=== PATIENT | male | born 1945 | race Caucasian/White ===

== ENCOUNTER 2018-05-12 08:03 | Outpatient (REF) | payer MEDICARE, SELFPAY ==
[2018-05-12 21:01] LABS: Anion Gap 5.8 mmol/L (3-11); BUN 21 mg/dL (7-18); CO2 31.2 mmol/L (21.0-32.0); CREATININE 1.11 mg/dL (0.70-1.30); Chloride 105 mmol/L (98-107); Cholesterol 135 mg/dL (50-200); Glucose 120 mg/dL (70-100); HDL Cholesterol 40 mg/dL (40-60); LDL CHOLESTEROL 70 mg/dL (<100); Potassium 4.4 mmol/L (3.5-5.1); Sodium 142 mmol/L (136-145); Triglyceride 145 mg/dL (30-150)
== END 2018-05-12 08:23 ==
LOC: NCHCN 08:03
PROVIDERS: Visit Provider Physician Assistant Medical
DX: E78.5 Hyperlipidemia, unspecified (principal); I10 Essential (primary) hypertension
CPT/HCPCS: 80048; 80061; 83721

== ENCOUNTER 2019-12-29 08:55 | Outpatient (REF) | payer OTHER, SELFPAY ==
[2019-12-29 19:45] LABS: Abs Immature Grans 0.01 k/cumm (0.0-0.09); Absolute Basophil Count 0.02 k/cumm (0.0-0.2); Absolute Eosinophil Count 0.17 k/cumm (0.0-0.7); Absolute Lymphocyte Count 1.42 k/cumm (1.2-3.4); Absolute Monocyte Count 0.41 k/cumm (0.11-0.7); Absolute Neutrophil Count 2.61 k/cumm (1.2-6.7); Basophils % 0.4; Eosinophils % 3.7; HCT 42.3 % (40.0-50.0); HGB 14.2 g/dL (13.5-17.5); Immature Grans % 0.2 %; Lymphocytes % 30.6; Mean Corp. HGB Concentration 33.6 g/dL (32.0-36.0); Mean Corpuscular Hemoglobin 30.9 pg (27.0-33.0); Mean Corpuscular Volume 92.2 fL (80-95); Mean Platelet Volume 11.1 fL (8.0-11.0); Monocytes % 8.8; Neutrophils % 56.3; Platelet Count 172 x1000/uL (130-400); RBC 4.59 m/cumm (4.50-6.00); RBC Distribution Width 12.5 % (11.8-14.1); White Blood Cell Count 4.64 k/cumm (4.4-10.8)
[2019-12-29 19:57] LABS: Bilirubin Negative (Negative); Blood Negative (Negative); Clarity Clear (Clear); Glucose Negative (Negative); Ketones Negative (Negative); Leukocyte Esterase Negative (Negative); Nitrite Negative (Negative); Specific Gravity >= 1.030 (1.005-1.025); Urobilinogen 0.2 EU/dL (Up TO 0.2)
[2019-12-29 20:24] LABS: ALT 19 U/L (16-63); AST 15 U/L (15-37); Albumin 3.8 g/dL (3.4-5.0); Alkaline Phosphatase 49 U/L (46-116); Anion Gap 6.6 mmol/L (3-11); BUN 14 mg/dL (7-18); Bilirubin, Total 0.6 mg/dL (0.2-1.0); CO2 31.4 mmol/L (21.0-32.0); CREATININE 0.99 mg/dL (0.70-1.30); Calcium 8.6 mg/dL (8.5-10.1); Calculated LDL 70 mg/dL (<100); Chloride 106 mmol/L (98-107); Cholesterol 123 mg/dL (<200); Glucose 107 mg/dL (74-106); HDL Cholesterol 42 mg/dL (40-60); Potassium 3.7 mmol/L (3.5-5.1); Sodium 144 mmol/L (136-145); TSH (W/Ref FT4) 1.15 uIU/mL (0.36-3.74); Total Protein 6.4 g/dL (6.4-8.2); Triglyceride 57 mg/dL (<150)
== END 2019-12-29 09:15 ==
LOC: NCHCN 08:55
PROVIDERS: Visit Provider Physician Assistant
DX: E78.5 Hyperlipidemia, unspecified (principal); I10 Essential (primary) hypertension
CPT/HCPCS: 80053; 80061; 81003; 84443; 85025

== ENCOUNTER 2020-01-10 17:19 | Outpatient (REF) | payer OTHER, SELFPAY ==
[2020-01-10 19:28] LABS: Uric Acid 4.5 mg/dL (3.5-7.2)
== END 2020-01-10 17:39 ==
LOC: NCHCN 17:19
PROVIDERS: Visit Provider Physician Assistant
DX: M79.672 Pain in left foot (principal)
CPT/HCPCS: 84550

== ENCOUNTER 2020-06-28 14:10 | Outpatient (REF) | payer OTHER, SELFPAY ==
[2020-06-28 15:08] LABS: Abs Immature Grans 0.02 10^3/uL (0.0-0.06); Absolute Basophil Count 0.04 10^3/uL (0.0-0.2); Absolute Eosinophil Count 0.15 10^3/uL (0.0-0.7); Absolute Lymphocyte Count 1.64 10^3/uL (1.2-3.4); Basophils % 0.7; Eosinophils % 2.8; HCT 41.4 % (40.0-50.0); Immature Grans % 0.4; Lymphocytes % 30.1; MCH 30.9 pg (27.0-33.0); MCHC 33.8 % (32.0-36.0); MCV 91.4 fL (80-95); Monocytes % 7.3; Neutrophils % 58.7; Nucleated RBC 0 %; Platelet Count 155 10^3/uL (130-400); RBC 4.53 10^6/uL (4.36-5.78); RDW 12.3 % (11.8-14.1); RDW-SD 40.9 fL; WBC 5.45 10^3/uL (4.4-10.8)
[2020-06-28 15:25] LABS: Iron 82 ug/dL (65-175); Total Iron Binding Capacity 251 ug/dL (250-450); Transferrin Sat 33 % (20-55)
[2020-06-28 15:53] LABS: ALT 35 U/L (16-63); AST 18 U/L (15-37); Albumin 3.8 g/dL (3.4-5.0); Alkaline Phosphatase 49 U/L (46-116); BUN 14 mg/dL (7-18); Bilirubin, Total 0.7 mg/dL (0.2-1.0); CREATININE 0.99 mg/dL (0.70-1.30); Calcium 8.7 mg/dL (8.5-10.1); Calculated LDL 71 mg/dL (<100); Chloride 105 mmol/L (98-107); Cholesterol 131 mg/dL (<200); Ferritin 227 ng/mL (26-388); Glucose 136 mg/dL (74-106); HDL Cholesterol 50 mg/dL (40-60); Potassium 3.8 mmol/L (3.5-5.1); Sodium 143 mmol/L (136-145); TSH (W/Ref FT4) 1.12 uIU/mL (0.36-3.74); Total Protein 6.6 g/dL (6.4-8.2); Triglyceride 51 mg/dL (<150); Vitamin B12 826 pg/mL (193-986)
[2020-06-28 17:05] LABS: Hemoglobin A1C 5.8 % (<5.7)
== END 2020-06-28 14:30 ==
LOC: NCHCN 14:10
PROVIDERS: Visit Provider Physician Assistant
DX: I10 Essential (primary) hypertension (principal); E78.5 Hyperlipidemia, unspecified; E63.9 Nutritional deficiency, unspecified; R73.9 Hyperglycemia, unspecified; E53.8 Deficiency of other specified B group vitamins; R79.89 Other specified abnormal findings of blood chemistry
CPT/HCPCS: 80053; 80061; 82607; 82728; 83036; 83540; 83550; 84443; 85025

== ENCOUNTER 2021-01-10 19:03 | Outpatient (REF) | payer OTHER, SELFPAY ==
[2021-01-10 19:26] LABS: Abs Immature Grans 0.01 10^3/uL (0.0-0.06); Absolute Basophil Count 0.03 10^3/uL (0.0-0.2); Absolute Eosinophil Count 0.14 10^3/uL (0.0-0.7); Absolute Lymphocyte Count 1.54 10^3/uL (1.2-3.4); Absolute Monocyte Count 0.39 10^3/uL (0.1-0.8); Absolute Neutrophil Count 2.82 10^3/uL (1.2-6.7); Basophils % 0.6; Eosinophils % 2.8; HGB 14.1 g/dL (13.5-17.5); Immature Grans % 0.2; Lymphocytes % 31.2; MCH 30.5 pg (27.0-33.0); MCHC 32.8 % (32.0-36.0); MCV 93.1 fL (80-95); MPV 10.9 fL (8.0-11.0); Monocytes % 7.9; Neutrophils % 57.3; Nucleated RBC 0 %; Platelet Count 162 10^3/uL (130-400); RBC 4.62 10^6/uL (4.36-5.78); RDW 12.3 % (11.8-14.1); RDW-SD 42.2 fL; WBC 4.93 10^3/uL (4.4-10.8)
[2021-01-10 20:09] LABS: ALT 29 U/L (16-63); AST 24 U/L (15-37); Alkaline Phosphatase 53 U/L (46-116); Anion Gap 6.7 mmol/L (3-11); BUN 12 mg/dL (7-18); CO2 32.3 mmol/L (21.0-32.0); Calcium 9.1 mg/dL (8.5-10.1); Calculated LDL 70 mg/dL (<100); Chloride 106 mmol/L (98-107); Cholesterol 124 mg/dL (<200); Glucose 104 mg/dL (74-106); HDL Cholesterol 48 mg/dL (40-60); Potassium 4.2 mmol/L (3.5-5.1); Sodium 145 mmol/L (136-145); Total Protein 6.7 g/dL (6.4-8.2); Triglyceride 34 mg/dL (<150); Vitamin B12 576 pg/mL (193-986)
[2021-01-10 20:15] LABS: Hemoglobin A1C 5.9 % (<5.7)
== END 2021-01-10 19:04 | disposition home or self-care (01) ==
LOC: NCHCN 19:03
PROVIDERS: Visit Provider Physician Assistant
DX: E78.5 Hyperlipidemia, unspecified (principal); R73.9 Hyperglycemia, unspecified; I10 Essential (primary) hypertension; E53.8 Deficiency of other specified B group vitamins
CPT/HCPCS: 80053; 80061; 82607; 83036; 85025

== ENCOUNTER 2021-04-25 12:40 | Outpatient (CLI) | payer MEDICARE, SELFPAY ==
--- NOTE | 2021-04-25 09:45 | DI.RAD_ITS ---
Exam(s) XR KNEE LT 3V AP,LAT,CLARI EXAM: XR KNEE LT 3V AP,LAT,CLARI CLINICAL HISTORY: left knee pain. TECHNIQUE: 2D digital imaging was performed. COMPARISON: No exams were available for comparison FINDINGS: BONES: No acute fracture is present. No bony destructive lesion is seen. JOINTS: The knee is normally aligned. No joint effusion is seen. The joint spaces are well maintaine d. There is mild periarticular spurring. SOFT TISSUE: Normal. IMPRESSION: Mild degenerative changes. DATA REPOSITORY: RADIATION DOSE DELIVERED:
== END 2021-04-25 12:41 | disposition home or self-care (01) ==
LOC: DIORS 12:40
PROVIDERS: Visit Provider Physician Assistant
DX: M25.562 Pain in left knee (principal); M23.92 Unspecified internal derangement of left knee
CPT/HCPCS: 20610; 73562; 99203; J1040

== ENCOUNTER 2021-07-10 15:15 | Outpatient (REF) | payer MEDICARE, SELFPAY ==
[2021-07-10 20:50] LABS: Hemoglobin A1C 5.8 % (<5.7)
== END 2021-07-10 15:16 | disposition home or self-care (01) ==
LOC: NCHCN 15:15
PROVIDERS: Visit Provider Physician Assistant
DX: R73.03 Prediabetes (principal)
CPT/HCPCS: 83036

== ENCOUNTER 2022-01-23 00:54 | Outpatient (CLI) | payer MEDICARE, SELFPAY ==
--- NOTE | 2022-01-23 | DI.RAD_ITS ---
Exam(s) XR KNEE RT 3V AP,LAT,CLARI EXAM: XR KNEE RT 3V AP,LAT,CLARI CLINICAL HISTORY: RT KNEE MAIN, M25.561. TECHNIQUE: 2D digital imaging was performed. COMPARISON: None. FINDINGS: Three views There is a right knee prosthesis. Components exhibit longer than typical stems. No fracture. No lo osening. No radiographic evidence of osteomyelitis. IMPRESSION: DATA REPOSITORY: RADIATION DOSE DELIVERED:
--- NOTE | 2022-01-23 | DI.RAD_ITS ---
Exam(s) XR KNEE LT 3V AP,LAT,CLARI EXAM: XR KNEE LT 3V AP,LAT,CLARI CLINICAL HISTORY: LT KNEE PAIN, M25.562. TECHNIQUE: 2D digital imaging was performed. COMPARISON: CR XR KNEE LT 3V AP,LAT,CLRAI from 04/25/2021 CR XR KNEE RT 3V AP,LAT,CLARI from 01/23/2022 FINDINGS: 3 views No evidence of fracture nor joint effusion. No joint space narrowing on the weight-bearing view. No osteophytes evident although there is mild degenerative pointing of the medial tibial spine. Bone d ensity normal. No osseous lesions. IMPRESSION: No significant radiographic findings. DATA REPOSITORY: RADIATION DOSE DELIVERED:
== END 2022-01-23 01:14 ==
LOC: DI 00:54
PROVIDERS: Visit Provider Physician Assistant
DX: M25.561 Pain in right knee (principal); Z96.651 Presence of right artificial knee joint
CPT/HCPCS: 73562

== ENCOUNTER 2022-01-29 15:08 | Outpatient (REF) | payer MEDICARE, SELFPAY ==
[2022-01-29 21:20] LABS: ALT 24 U/L (16-63); AST 22 U/L (15-37); Albumin 3.9 g/dL (3.4-5.0); Alkaline Phosphatase 43 U/L (46-116); Anion Gap 7.5 mmol/L (3-11); BUN 21 mg/dL (7-18); Bilirubin, Total 0.5 mg/dL (0.2-1.0); CO2 29.5 mmol/L (21.0-32.0); Calcium 8.9 mg/dL (8.5-10.1); Calculated LDL 91 mg/dL (<100); Chloride 105 mmol/L (98-107); Cholesterol 152 mg/dL (<200); Glucose 121 mg/dL (74-106); HDL Cholesterol 46 mg/dL (40-60); Potassium 4.2 mmol/L (3.5-5.1); Sodium 142 mmol/L (136-145); Total Protein 7.2 g/dL (6.4-8.2); Triglyceride 78 mg/dL (<150)
== END 2022-01-29 15:09 | disposition home or self-care (01) ==
LOC: NCHCN 15:08
PROVIDERS: PCP Physician Assistant; Visit Provider Physician Assistant
DX: E78.5 Hyperlipidemia, unspecified (principal); I10 Essential (primary) hypertension
CPT/HCPCS: 80053; 80061

== ENCOUNTER 2022-04-03 09:20 | Outpatient (CLI) | payer MEDICARE, SELFPAY ==
--- NOTE | 2022-04-03 09:15 | DI.RAD_ITS ---
Exam(s) XR HIP PELVIS ADULT BL EXAM: XR HIP PELVIS ADULT BL CLINICAL HISTORY: bilateral hip discomfort TECHNIQUE: COMPARISON: No exams were available for comparison FINDINGS: Three views were obtained. The cartilaginous joint spaces of the hips may be minimally narrowed supe riorly. There is slight subchondral sclerosis of the acetabulum bilaterally and there is minimal mar ginal osteophyte formation of both femoral heads and acetabulum. No other bony abnormality seen. IMPRESSION: Mild DJD both hips. RADIATION DOSE DELIVERED: Total DLP
== END 2022-04-03 09:21 | disposition home or self-care (01) ==
LOC: DIORS 09:20
PROVIDERS: PCP Physician Assistant; Referring Provider Physician Assistant; Visit Provider Physician Assistant
DX: M17.12 Unilateral primary osteoarthritis, left knee (principal); M16.11 Unilateral primary osteoarthritis, right hip; M16.12 Unilateral primary osteoarthritis, left hip; Z96.651 Presence of right artificial knee joint
CPT/HCPCS: 20610; 73521; J1040

== ENCOUNTER 2022-09-10 01:29 | Outpatient (CLI) | payer MEDICARE, SELFPAY ==
--- NOTE | 2022-09-10 | DI.RAD_ITS ---
Exam(s) XR HIP LT COMPLETE AP PELVIS EXAM: XR HIP LT COMPLETE AP PELVIS CLINICAL HISTORY: LT HIP PAIN, M25.552. TECHNIQUE: 2D digital imaging was performed of the left hip. Two views were obtained. AP pelvis an d lateral left hip views were obtained. COMPARISON: CR XR HIP PELVIS ADULT BL from 04/03/2022 FINDINGS: BONES: No acute fracture is present. No bony destructive lesion is seen. JOINTS: No dislocation present. There is appear to be mild narrowing of the joint spaces bilaterally and mild acetabular spurring. Degenerative changes are seen in the lower lumbar spine. SOFT TISSUE: Normal. IMPRESSION: Mild degenerative changes of the left hip. DATA REPOSITORY: RADIATION DOSE DELIVERED:
--- NOTE | 2022-09-10 | DI.RAD_ITS ---
Exam(s) XR SHOULDER RT COMPLETE 2+V EXAM: XR SHOULDER RT COMPLETE 2+V CLINICAL HISTORY: RT SHOULDER PAIN, M25.511. TECHNIQUE: 2D digital imaging was performed of the right shoulder. Four images were obtained. AP, axillary and Y views were obtained. COMPARISON: No exams were available for comparison FINDINGS: BONES: No acute fracture is present. No bony destructive lesion is seen. JOINTS: No dislocation present. There are degenerative changes seen at the acromioclavicular joint ch aracterized by bony hypertrophy. The glenohumeral joint is well maintained. SOFT TISSUE: There is a soft tissue calcification adjacent to the greater tuberosity suggesting calci fic tendinitis. IMPRESSION: Degenerative changes of the shoulder as described. DATA REPOSITORY: RADIATION DOSE DELIVERED:
== END 2022-09-10 01:49 ==
LOC: DI 01:30
PROVIDERS: PCP Physician Assistant; Visit Provider Physician Assistant
DX: M25.511 Pain in right shoulder (principal); M25.552 Pain in left hip; M75.31 Calcific tendinitis of right shoulder; M25.811 Other specified joint disorders, right shoulder; M16.12 Unilateral primary osteoarthritis, left hip
CPT/HCPCS: 73030; 73502

== ENCOUNTER → 2022-12-04 14:20 | Outpatient (BNVA) | payer MEDICARE, SELFPAY | PROVIDERS: PCP Physician Assistant; Referring Provider Physician Assistant | DX: M17.12 Unilateral primary osteoarthritis, left knee (principal) | CPT/HCPCS: 99213 ==

== ENCOUNTER 2023-01-14 09:23 | Outpatient (REF) | payer MEDICARE, SELFPAY ==
[2023-01-14 20:28] LABS: HCT 44.2 % (40.0-50.0); MCH 30.9 pg (27.0-33.0); MCHC 33.9 % (32.0-36.0); MCV 91 fL (80-95); MPV 10.3 fL (8.0-11.0); Platelet Count 179 10^3/uL (130-400); RBC 4.85 10^6/uL (4.36-5.78); RDW-SD 40.3 fL; WBC 5.91 10^3/uL (4.4-10.8)
[2023-01-14 20:59] LABS: ALT 28 U/L (16-63); AST 19 U/L (15-37); Alkaline Phosphatase 45 U/L (46-116); BUN 13 mg/dL (7-18); Bilirubin, Total 0.5 mg/dL (0.2-1.0); Calculated LDL 104 mg/dL (<100); Chloride 106 mmol/L (98-107); Cholesterol 164 mg/dL (<200); Estimated GFR 78.49 (mL/min/1.73m2); Glucose 100 mg/dL (74-106); HDL Cholesterol 44 mg/dL (40-60); Potassium 3.8 mmol/L (3.5-5.1); Sodium 144 mmol/L (136-145); Total Protein 7.2 g/dL (6.4-8.2); Triglyceride 80 mg/dL (<150)
== END 2023-01-14 09:24 | disposition home or self-care (01) ==
LOC: NCHCN 09:23
PROVIDERS: PCP Physician Assistant; Visit Provider Physician Assistant
DX: I10 Essential (primary) hypertension (principal)
CPT/HCPCS: 80053; 80061; 85027

== ENCOUNTER 2023-01-14 13:15 | Outpatient (CLI) | payer MEDICARE, SELFPAY ==
--- NOTE | 2023-01-14 13:00 | DI.RAD_ITS ---
Exam(s) XR SHOULDER LT COMPLETE 2+V EXAM: XR SHOULDER LT COMPLETE 2+V CLINICAL HISTORY: left shoulder pain. TECHNIQUE: 2D digital imaging was performed. Three views. COMPARISON: None FINDINGS: BONES: No acute fracture is present. No bony destructive lesion is seen. JOINTS: No dislocation present. Mild narrowing of the glenohumeral joint. Mild periarticular spurri ng. Mild spurring at the AC joint. SOFT TISSUE: Linear calcification adjacent to greater tuberosity, consistent with calcific tendinosis . IMPRESSION: Mild degenerative changes and calcific tendinosis. DATA REPOSITORY: RADIATION DOSE DELIVERED:
== END 2023-01-14 13:16 | disposition home or self-care (01) ==
LOC: DIORS 13:15
PROVIDERS: PCP Physician Assistant; Referring Provider Physician Assistant; Visit Provider Student in an Organized Health Care Education/Training Program
DX: S46.012A Strain of muscle(s) and tendon(s) of the rotator cuff of left shoulder, initial encounter; X58.XXXA Exposure to other specified factors, initial encounter
CPT/HCPCS: 99214; 73030

== ENCOUNTER → 2023-03-05 08:11 | Outpatient (BNVA) | payer MEDICARE, SELFPAY | PROVIDERS: PCP Physician Assistant; Referring Provider Physician Assistant; Visit Provider Physical Therapy Assistant | DX: Z12.11 Encounter for screening for malignant neoplasm of colon (principal); Z86.010 Personal history of colon polyps ==

== ENCOUNTER → 2023-03-18 13:15 | Outpatient (BNVA) | payer MEDICARE, SELFPAY | PROVIDERS: PCP Physician Assistant; Referring Provider Physician Assistant; Visit Provider Student in an Organized Health Care Education/Training Program ==

== ENCOUNTER 2023-03-19 06:42 | Day surgery (SDC) | payer MEDICARE, SELFPAY ==
--- NOTE | 2023-03-18 13:20 | W.PM.DSUDISC ---
Date of service: 03/19/23 Time of Service: 08:32 Discharge Plan Disposition Patient Disposition: Home Condition: Good Discharge Details Reason For Visit: Screening colonoscopy Attending Provider: Farooq Hair Primary Care Provider: Hazel Grajeda Home Meds and New Rx's Prescriptions: Continued omega-3 fatty acids-fish oil 1 EACH capsule 2 ea PO DAILY cholecalciferol (vitamin D3) [Vitamin D3] 2,000 UNIT tablet 2,000 unit PO DAILY cyanocobalamin (vitamin B-12) 2,500 MCG tablet 2,500 mcg PO DAILY amlodipine 10 mg tablet 10 mg PO DAILY aspirin [Adult Aspirin Regimen] 81 mg tablet,delayed release (DR/EC) 81 mg PO DAILY red yeast rice 600 mg capsule 1,200 mg PO DAILY Rx Instructions: give with meal/snack esomeprazole magnesium 20 mg capsule,delayed release(DR/EC) 20 mg PO DAILY ascorbic acid (vitamin C) 500 mg capsule 500 mg PO DAILY Discontinued bisacodyl [Dulcolax (bisacodyl)] 5 mg tablet,delayed release (DR/EC) 5 mg PO ONCE Qty: 4 0RF Rx Instructions: Take per colonoscopy instructions provided by ordering providers office polyethylene glycol 3350 17 gram/dose powder 17 g PO ONCE Qty: 238 0RF Rx Instructions: Take per colonoscopy instructions provided by ordering providers office Discharge Instructions Instructions: Diverticulosis (GEN), Diverticulosis Diet (GEN) Additional Instructions: Ricardo, we were able to complete your colonoscopy today without any difficulty. You do have some diverticulosis. These are weak spots in the colon wall that typically accumulate with age. Sometimes they can get infected, and when that happens, patients usually have bad left-sided or lower abdominal pain with fevers and a general sense of feeling crummy. If you find that happening, I would recommend touching base with your primary care doctor, or perhaps stopping in the emergency department. In severe cases, patients should be treated with antibiotics. Otherwise, your colonoscopy was totally normal. I did not see any signs of polyps or tumors. Like we talked about beforehand, if you want to come back for a future colonoscopy, would be more than happy to have you. If you have decided that this is your last one, then I certainly understand that as well. 1. If tolerated, consume a soft, low fiber diet for 1-2 days. 2[address] Do not drive, drink alcohol, operate machinery, make critical decisions, or do activities that require coordination or balance for 24 hours. 3. Because air was put into your colon during the procedure, expelling air from your rectum (passing gas or farting) is normal. 4. You may not have a bowel movement for 1-3 days because of the colonoscopy prep. This is normal. 5. Go directly to the emergency room if you notice any of the following: Develop chills (warm to touch), or if you have a thermometer and your temperature is above 101 Difficulty breathing or difficultly swallowing Persistent vomiting Severe abdominal pain, other than gas cramps Severe chest pain Black, tarry stools Any bleeding ? exceeding one tablespoon 6. Call your physician if the site where your intravenous was started becomes red, swollen, painful, and warm to touch. 7. Your physician has reviewed your pre-procedure medications. Please continue to take those medications as previously ordered. You will be given specific information/education regarding any changes to your medications before leaving. Activity:: Activity as Tolerated Diet:: As Tolerated Discharge Orders Discharge Orders: Discharge Order (Routine); Ordered 03/18/23 Ordered By: Farooq Hair DS: Diagnosis Discharge Diagnosis (1) Screen for colon cancer: Status: Acute Asessment and Plan: Diverticulosis, otherwise negative screening colonoscopy
--- NOTE | 2023-03-18 13:21 | COLE_ITS ---
Date of service: 03/19/23 Time of Service: 08:34 Colonoscopy Report Date of procedure: 03/19/23 Pre-op diagnosis general: Screening colonoscopy Post-op diagnosis procedure note: other (Diverticulosis) Procedure: Colonoscopy Surgeon: Farooq Hair Anesthesia Type: General:No Airway Estimated blood loss (mL): 0 Pathology: none sent Complications: None Disposition: same day Indications: Ricardo is a 78-year-old male who has a previous tubular adenoma on colonoscopy. He is here for his next screen. Prep: Miralax/Dulcolax Procedure Start Time: 08:11 Procedure End Time: 08:22 Retraction Time: 8 Findings: Sigmoid diverticulosis extending from about 20 cm to about 35 cm Procedure Description: After the induction of monitored anesthetic care, and with the patient in left lateral decubitus position, I began by performing an external anorectal exam.? Perineum and skin were normal, as was the anal verge.? There are some mild external hemorrhoids.? Next, I performed a digital rectal exam.? I did not appreciate any abnormal findings.? Next, I advanced a colonoscope into the rectal vault.? I performed retroflexion.? This appeared normal.? Using insufflation, I then advanced the colonoscope beyond the rectal folds and into t he sigmoid colon before advancing towards the cecum. There was sigmoid diverticulosis the quality of the prep was excellent.? The scope was noted to be in the cecum by identification of the ileocecal valve and appendiceal orifice.? I then began withdrawing the colonoscope using repeated irrigation as necessary for full evaluation of the colonic mucosa. The diverticulosis extended from about 35 cm to about 20 cm from the anal verge. ?Once the scope was withdrawn to the level of the rectum, great care was taken to examine portions of the rectal folds.? Finally, the scope was withdrawn and the patient was brought to the same-day surgery recovery unit as the anesthetic wore off. ?The findings and instructions were shared with the patient prior to discharge.
[2023-03-19 06:55] VITALS: BP 134/65; PULSE 52; RESP 16; TEMP 36.3; O2SAT 97
[2023-03-19] MEDS: Lactated Ringers 1,000 ML 80 ML IV (07:16)
--- NOTE | 2023-03-19 07:35 | W.ANESPRE ---
General Info Date of Service Date Performed: 03/19/23 Height: 5 ft 8 in Weight: 69.1 kg Body Mass Index (BMI): 23.1 Surgical Procedure: Operation Date: 03/19/23 08:20 Proposed Procedure Side Surgeon mike Hair MD Meds Allergies and Home Medications Allergies Allergy/AdvReac Type Severity Reaction Status Date / Time influenza virus vaccine tv Allergy Severe Verified 03/19/23 07:07 split 2012-14 (5 yr,up) [From Afluria] sildenafil citrate Allergy Unknown Verified 03/19/23 07:07 [From Viagra] donepezil [From Aricept] Allergy Verified 03/19/23 07:07 rivastigmine [From Exelon] Allergy Verified 03/19/23 07:07 rivastigmine tartrate Allergy Verified 03/19/23 07:07 [From Exelon] warfarin sodium Allergy Verified 03/19/23 07:07 [From Coumadin] 0XYCODONE Allergy Unknown Uncoded 03/19/23 07:07 FLU SHOT Allergy Unknown Uncoded 03/19/23 07:07 Home Medication Medication Instructions Recorded cholecalciferol (vitamin D3) 50 2,000 unit PO DAILY 04/15/17 mcg (2,000 unit) tablet (Vitamin D3) cyanocobalamin (vitamin B-12) 2,500 mcg PO DAILY 04/15/17 2,500 mcg tablet omega-3 fatty acids-fish oil 300 2 ea PO DAILY 04/15/17 mg-1,000 mg capsule amlodipine 10 mg tablet 10 mg PO DAILY 01/28/22 aspirin 81 mg tablet,delayed 81 mg PO DAILY 01/28/22 release (Adult Aspirin Regimen) red yeast rice 600 mg capsule 1,200 mg PO DAILY 01/28/22 ascorbic acid (vitamin C) 500 mg 500 mg PO DAILY 09/02/22 capsule esomeprazole magnesium 20 mg 20 mg PO DAILY 09/02/22 capsule,delayed release Current Visit Medications: Current Medications Generic Name Dose Route Start Last Admin Trade Name Freq PRN Reason Stop Dose Admin Hyoscyamine Sulfate 0.125 mg 03/18/23 13:22 Hyoscyamine 0.125 Mg Sl/Oral/Chew SL 04/17/23 13:21 DIRECTED PRN Ringer's Solution 1,000 mls @ 80 mls/hr 03/19/23 06:00 03/19/23 07:16 IV 04/17/23 23:59 80 mls/hr INFUSION RUY Administration IV Miscellaneous Supplies 1 each 03/19/23 06:00 Iv Access IV 04/17/23 23:59 DIRECTED RUY Ondansetron HCl 4 mg 03/18/23 13:22 Ondansetron 4 Mg/2 Ml Vial IVP 04/17/23 13:21 Q4H PRN PRN Nausea / Vomiting Sodium Chloride 0 ml 03/19/23 06:00 Normal Saline Flush 10 Ml Syr IV 04/17/23 23:59 PRN PRN Sodium Chloride 0 ml 03/19/23 06:00 Normal Saline 10 Ml Vial IJ 04/17/23 23:59 DIRECTED PRN Sterile Water 0 ml 03/19/23 06:00 Water,Injection,Sterile 10 Ml Vial IJ 04/17/23 23:59 DIRECTED PRN PFSH Active Problems Active Problems: Problem Status Onset Code Screen for colon cancer Z12.11 Traumatic tear of left rotator cuff 01/03/23 S46.012A Left shoulder pain M25.512 Nutritional deficiency, unspecified E63.9 Prediabetes R73.03 Hearing loss, bilateral H91.93 Left knee pain M25.562 Right knee pain M25.561 Pulsatile tinnitus H93.A9 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 Degenerative joint disease of right hip M16.11 Osteoarthritis of left knee M17.12 Hypertension I10 Erectile dysfunction N52.9 B12 deficiency E53.8 GERD (gastroesophageal reflux disease) K21.9 Lung nodule R91.1 Renal colic N23 Hyperlipidemia E78.5 Bladder mass N32.89 Genital warts A63.0 Mild cognitive impairment G31.84 Orthostatic hypotension I95.1 Hyperglycemia R73.9 Medical History Medical History H/O adenomatous polyp of colon History of colonic polyps Surgical History Surgical History History of total right knee replacement Tobacco Smoking/Tobacco Use Status: Former Tobacco Use Alcohol Alcohol Intake: former Substance Use Substance use: Never Substance use type: does not use Vital Signs and Lab Results Vital Signs Most Recent Vital Signs in EMR: Most Recent Vital Signs Temp Pulse Resp BP Pulse Ox 36.3 C L 52 L 16 134/65 97 03/19/23 06:55 03/19/23 06:55 03/19/23 06:55 03/19/23 06:55 03/19/23 06:55 Lab Results Blood Type / Crossmatch: No Data to Display Complete Blood Count: No Data to Display Complete Metabolic Panel: No Data to Display Liver Function Panel: No Data to Display Coagulation Panel: No Data to Display Cardiac Panel: No Data to Display Arterial Blood Gas: No Data to Display Venous Blood Gas: No Data to Display Pancreas Panel: No Data to Display Thyroid Panel: No Data to Display Infectious Disease: No Data to Display Blood Cultures: No Data to Display Toxicology Panel: No Data to Display Anesthesia Assessment and Plan Anesthesia History Personal History: No History of Anesthesia Complications Family History: No Family History of Anesthesia Complications Exercise Tolerance Exercise Tolerance: Metabolic Equivalents>4 Pertinent Negatives Pertinent Negatives: No Symptoms of GERD, No Major Cardiovascular Symptoms or Complaints and No Major Pulmonary Symptoms or Complaints Cardiac & Pulmonary Exam Cardiac Exam: Normal S1/S2 Heart Sounds Pulmonary Exam: Clear Bilateral Breath Sounds Implantable Cardiac Device Does patient have a Pacemaker or an ICD?: No Airway Exam Known Difficult Airway: No Mallampati Class: 2 Mouth Opening: Normal (> 3cm) Thyromental Distance: Greater than 3 cm Neck Range of Motion: Full ROM Neck Circumference: Normal Teeth Condition: Normal Dentition ASA Classification ASA Score: ASA 2 Emergency Case?: No NPO Status NPO Status: NPO Clears >2 hours, Solids >8 hours Anesthesia Plan Resuscitation Status: Full Code Anesthesia Technique: General Anesthesia Airway Planned: Natural Airway Monitors Used: Standard Monitors
[2023-03-19 08:04] VITALS: BMI 23.1
[2023-03-19 08:30] VITALS: BP 120/67; PULSE 56; RESP 16; TEMP 36.3; O2SAT 96
[2023-03-19 08:51] VITALS: BP 126/67; PULSE 57; RESP 16; TEMP 36.6; O2SAT 95
--- NOTE | 2023-03-19 09:16 | W.COLOREPORT ---
Date of service: 03/19/23 Time of Service: 09:17
--- NOTE | 2023-03-19 09:19 | W.ANESPOSTOP ---
Postoperative Evaluation Date, Time and Location Date Performed: 03/19/23 Time Performed: 08:40 Patient Location: Day Surgery Unit Vital Signs Most Recent Imported Vital Signs: Most Recent Vital Signs Temp Pulse Resp BP Pulse Ox 36.6 C 57 L 16 126/67 95 03/19/23 08:51 03/19/23 08:51 03/19/23 08:51 03/19/23 08:51 03/19/23 08:51 Pain Score Most Recent Pain Score: Most Recent Pain Score Pain Level 0 03/19/23 08:51 Assessment Mental Status: Awake (Alert & Oriented to Patient Baseline) Airway and Respiratory Function: Patent airway with normal (patient baseline) respiratory exam Cardiovascular Function: Hemodynamically Stable Hydration Status: Adequately Hydrated Nausea & Vomiting: No Nausea or Vomiting Pain: Pt. Denies Any Pain Peripheral Nerve Block: Patient did not receive a nerve block
== END 2023-03-19 09:10 | disposition home or self-care (01) ==
PROVIDERS: PCP Physician Assistant; Visit Provider Surgery
PROC: 0DJD8ZZ Inspection of Lower Intestinal Tract, Via Natural or Artificial Opening Endoscopic (ICD-10-PCS; CPT 45378; principal; 2023-03-19 08:15)
DX: Z12.11 Encounter for screening for malignant neoplasm of colon (principal); K57.30 Diverticulosis of large intestine without perforation or abscess without bleeding; Z86.010 Personal history of colon polyps; I10 Essential (primary) hypertension; E78.5 Hyperlipidemia, unspecified; R73.03 Prediabetes
CPT/HCPCS: G0105; J2001

== ENCOUNTER 2023-04-16 02:40 | Outpatient (CLI) | payer MEDICARE, SELFPAY ==
[2023-04-16 11:25] LABS: HCT 43.2 % (40.0-50.0); HGB 14.4 g/dL (13.5-17.5); MCH 30.6 pg (27.0-33.0); MCHC 33.3 % (32.0-36.0); MCV 92 fL (80-95); MPV 9.1 fL (8.0-11.0); Platelet Count 159 10^3/uL (130-400); RBC 4.71 10^6/uL (4.36-5.78); RDW 12.3 % (11.8-14.1); RDW-SD 41.9 fL; WBC 5.09 10^3/uL (4.4-10.8)
[2023-04-16 11:48] LABS: BUN 11 mg/dL (7-18); CREATININE 0.9 mg/dL (0.70-1.30); Calcium 9.5 mg/dL (8.5-10.1); Chloride 105 mmol/L (98-107); Estimated GFR 88.51 (mL/min/1.73m2); Glucose 91 mg/dL (74-106); Potassium 3.6 mmol/L (3.5-5.1); Sodium 142 mmol/L (136-145)
== END 2023-04-16 02:41 | disposition home or self-care (01) ==
PROVIDERS: PCP Physician Assistant; Visit Provider Student in an Organized Health Care Education/Training Program
DX: M17.12 Unilateral primary osteoarthritis, left knee (principal); Z01.818 Encounter for other preprocedural examination
CPT/HCPCS: 36415; 80048; 85027

== ENCOUNTER 2023-04-16 11:11 | Outpatient (CLI) | payer MEDICARE, SELFPAY ==
--- NOTE | 2023-04-16 09:45 | DI.RAD_ITS ---
Exam(s) XR KNEE LT 1V XR STANDING ALIGNMENT EXAM: XR STANDING ALIGNMENT CLINICAL HISTORY: PRE OP L TKA. TECHNIQUE: 2D digital imaging was performed. Five images were obtained. COMPARISON: CR XR KNEE LT 3V AP,LAT,CLARI from 01/23/2022 CR XR KNEE RT 3V AP,LAT,CLARI from 01/23/2022 CR XR HIP PELVIS ADULT BL from 04/03/2022 CR XR KNEE LT 1V from 04/16/2023 FINDINGS: BONES: The hips are well maintained. There are stable postsurgical changes of a right knee replaceme nt. The orthopedic hardware appears unchanged. No suspicious lucencies are seen in or about the ort hopedic hardware. There is mild spurring of the posterior left patella. The left knee joint spaces are otherwise well maintained. There is a tiny left knee joint effusion. Atherosclerosis is seen in the soft tissues. The ankles are well maintained.There is no significant leg length discrepancy. SOFT TISSUE: Normal. IMPRESSION: 1. Stable right knee prosthesis. 2. Mild degenerative changes in the left knee. DATA REPOSITORY: RADIATION DOSE DELIVERED:
== END 2023-04-16 11:12 | disposition home or self-care (01) ==
LOC: DIORS 11:12
PROVIDERS: PCP Physician Assistant; Visit Provider Physician Assistant
DX: M17.12 Unilateral primary osteoarthritis, left knee (principal); Z01.818 Encounter for other preprocedural examination
CPT/HCPCS: 73560; 77073

== ENCOUNTER 2023-04-22 05:32 | Day surgery (SDC) | payer MEDICARE, SELFPAY ==
--- NOTE | 2023-04-21 14:03 | W.ANESPRE ---
General Info Date of Service Date Performed: 04/22/23 Height: 5 ft 8 in Weight: 70.76 kg Body Mass Index (BMI): 23.7 Surgical Procedure: Operation Date: 04/22/23 07:40 Proposed Procedure Side Surgeon p Knee Total Arthroplasty w/OrthAlign, Cementless CR Left Wellington Bhatt MD Meds Allergies and Home Medications Allergies Allergy/AdvReac Type Severity Reaction Status Date / Time influenza virus vaccine tv Allergy Severe Verified 04/16/23 10:19 split 2012-14 (5 yr,up) [From Afluria] oxycodone Allergy Intermediate Other (See Unverified 04/21/23 12:41 Comment) sildenafil citrate Allergy Unknown Verified 04/21/23 12:41 [From Viagra] donepezil [From Aricept] Allergy Verified 04/21/23 12:41 rivastigmine [From Exelon] Allergy Verified 04/21/23 12:41 rivastigmine tartrate Allergy Verified 04/21/23 12:41 [From Exelon] warfarin sodium Allergy Verified 04/21/23 12:41 [From Coumadin] FLU SHOT Allergy Unknown Uncoded 04/21/23 12:41 Home Medication Medication Instructions Recorded cholecalciferol (vitamin D3) 50 2,000 unit PO DAILY 04/15/17 mcg (2,000 unit) tablet (Vitamin D3) cyanocobalamin (vitamin B-12) 2,500 mcg PO DAILY 04/15/17 2,500 mcg tablet omega-3 fatty acids-fish oil 300 2 ea PO DAILY 04/15/17 mg-1,000 mg capsule amlodipine 10 mg tablet 10 mg PO DAILY 01/28/22 aspirin 81 mg tablet,delayed 81 mg PO DAILY 01/28/22 release (Adult Aspirin Regimen) red yeast rice 600 mg capsule 1,200 mg PO DAILY 01/28/22 ascorbic acid (vitamin C) 500 mg 500 mg PO DAILY 09/02/22 capsule esomeprazole magnesium 20 mg 20 mg PO DAILY 09/02/22 capsule,delayed release Current Visit Medications: Current Medications Generic Name Dose Route Start Last Admin Trade Name Freq PRN Reason Stop Dose Admin Acetaminophen 1,000 mg 04/22/23 06:00 Acetaminophen 500 Mg Tab PO 04/22/23 18:00 PREOP RUY Celecoxib 400 mg 04/22/23 06:00 Celecoxib 200 Mg Cap PO 04/22/23 18:00 PREOP RUY Gabapentin 300 mg 04/22/23 06:00 Gabapentin 300 Mg Cap PO 04/22/23 18:00 PREOP RUY Tranexamic Acid 1,000 mg/ 60 mls @ 360 mls/hr 04/22/23 06:00 Sodium Chloride IVPB 04/22/23 18:00 PREOP RUY Ringer's Solution 1,000 mls @ 80 mls/hr 04/22/23 06:00 IV 05/21/23 23:59 INFUSION RUY Cefazolin Sodium/Dextrose 2 gm in 50 mls @ 100 mls/hr 04/22/23 06:00 Ancef Duplex IVPB 04/22/23 16:00 PREOP URY IV Miscellaneous Supplies 1 each 04/22/23 06:00 Iv Access IV 05/21/23 23:59 DIRECTED RUY Sodium Chloride 0 ml 04/22/23 06:00 Normal Saline Flush 10 Ml Syr IV 05/21/23 23:59 PRN PRN Sodium Chloride 0 ml 04/22/23 06:00 Normal Saline 10 Ml Vial IJ 05/21/23 23:59 DIRECTED PRN Sterile Water 0 ml 04/22/23 06:00 Water,Injection,Sterile 10 Ml Vial IJ 05/21/23 23:59 DIRECTED PRN PFSH Active Problems Active Problems: Problem Status Onset Code Screen for colon cancer Z12.11 Traumatic tear of left rotator cuff 01/03/23 S46.012A Left shoulder pain M25.512 Nutritional deficiency, unspecified E63.9 Prediabetes R73.03 Hearing loss, bilateral H91.93 Left knee pain M25.562 Right knee pain M25.561 Pulsatile tinnitus H93.A9 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 Degenerative joint disease of right hip M16.11 Osteoarthritis of left knee M17.12 Hypertension I10 Erectile dysfunction N52.9 B12 deficiency E53.8 GERD (gastroesophageal reflux disease) K21.9 Lung nodule R91.1 Renal colic N23 Hyperlipidemia E78.5 Bladder mass N32.89 Genital warts A63.0 Mild cognitive impairment G31.84 Orthostatic hypotension I95.1 Hyperglycemia R73.9 Medical History Medical History H/O adenomatous polyp of colon History of colonic polyps Surgical History Surgical History (Updated 04/22/23 @ 06:16 by Priyank Merchant) History of cholecystectomy History of herniorrhaphy History of appendectomy History of total right knee replacement Tobacco Smoking/Tobacco Use Status: Former Tobacco Use Alcohol Alcohol Intake: former Substance Use Substance use: Never Substance use type: does not use Vital Signs and Lab Results Vital Signs Most Recent Vital Signs in EMR: Temp Pulse Resp BP Pulse Ox 36.6 C 49 L 16 171/65 H 98 04/22/23 06:17 04/22/23 06:17 04/22/23 06:17 04/22/23 06:17 04/22/23 06:17 Lab Results Blood Type / Crossmatch: No Data to Display Complete Blood Count: White Blood Count 5.09 10^3/uL (4.4-10.8) 04/16/23 11:19 Red Blood Count 4.71 10^6/uL (4.36-5.78) 04/16/23 11:19 Hemoglobin 14.4 g/dL (13.5-17.5) 04/16/23 11:19 Hematocrit 43.2 % (40.0-50.0) 04/16/23 11:19 Platelet Count 159 10^3/uL (130-400) 04/16/23 11:19 Complete Metabolic Panel: Sodium 142 mmol/L (136-145) 04/16/23 11:19 Potassium 3.6 mmol/L (3.5-5.1) 04/16/23 11:19 Chloride 105 mmol/L (98-107) 04/16/23 11:19 Carbon Dioxide 33.0 mmol/L (21.0-32.0) H 04/16/23 11:19 BUN 11 mg/dL (7-18) 04/16/23 11:19 Creatinine 0.9 mg/dL (0.70-1.30) 04/16/23 11:19 Est GFR (CKD-EPI 2020) 88.51 (mL/min/1.73m2) 04/16/23 11:19 Calcium 9.5 mg/dL (8.5-10.1) 04/16/23 11:19 Glucose 91 mg/dL (74-106) 04/16/23 11:19 Liver Function Panel: No Data to Display Coagulation Panel: No Data to Display Cardiac Panel: No Data to Display Arterial Blood Gas: No Data to Display Venous Blood Gas: No Data to Display Pancreas Panel: No Data to Display Thyroid Panel: No Data to Display Infectious Disease: No Data to Display Blood Cultures: No Data to Display Toxicology Panel: No Data to Display Anesthesia Assessment and Plan Anesthesia History Personal History: No History of Anesthesia Complications Family History: No Family History of Anesthesia Complications Exercise Tolerance Exercise Tolerance: Metabolic Equivalents>4 Cardiac & Pulmonary Exam Cardiac Exam: Normal S1/S2 Heart Sounds Pulmonary Exam: Clear Bilateral Breath Sounds Implantable Cardiac Device Does patient have a Pacemaker or an ICD?: No Airway Exam Known Difficult Airway: No Mallampati Class: 2 Mouth Opening: Normal (> 3cm) Thyromental Distance: Greater than 3 cm Neck Range of Motion: Full ROM Neck Circumference: Normal Teeth Condition: Normal Dentition ASA Classification ASA Score: ASA 2 Emergency Case?: No NPO Status NPO Status: NPO Clears >2 hours, Solids >8 hours Anesthesia Plan Resuscitation Status: Full Code Anesthesia Technique: Spinal Anesthesia Airway Planned: Natural Airway Pain Management: Surgeon and patient request nerve block Monitors Used: Standard Monitors Preoperative Comments:: 78 yo male for TKA. Sig PMHx: HTN (amlodipine), GERD (denies any issues, nexium), PreDM, b12 deficiency, former smoker/EtOH. Previous Anes: - colo, prop, natural airway, no issues.
[2023-04-22] VITALS (11 sets, daily range): BP systolic 129–171; BP diastolic 60–84; PULSE 48–64; RESP 12–20; TEMP 36.6–36.8; O2SAT 95–98; BMI 23.7
[2023-04-22] MEDS: Acetaminophen 500 MG TAB 1000 MG PO (06:43)
[2023-04-22] MEDS: Celecoxib 200 MG CAP 400 MG PO (06:43)
[2023-04-22] MEDS: Gabapentin 300 MG CAP PO (06:43)
[2023-04-22] MEDS: Lactated Ringers 1,000 ML 80 ML IV (06:44)
--- NOTE | 2023-04-22 07:16 | W.ANESNERVE ---
Nerve Block Single Injection Procedure Date and Time Date Performed: 04/22/23 Procedure Start: 07:12 Location Where Procedure Performed Procedure Location: Day Surgery Unit Reason Performed: Postoperative Analgesia Requesting Provider: Wellington Bhatt Timeout Performed Timeout Performed: Yes Monitoring Used ECG, Blood Pressure and SpO2 Sterility Sterility: Hand Hygiene, Surgical Cap, Surgical Mask, Sterile Gloves and Chlorhexidine Sedation Given During Procedure Sedation Given (Indicate Dose Given): No Sedation given Patient Mental Status Patient Mental Status: Awake Nerve Block 1st Nerve Block: Laterality: Left Block Type: Adductor Canal Ultrasound Image Saved?: Yes Needle / Catheter Used: 100mm SonoPlex II Local Anesthetic Bolus (Indicate Dose Given): Lidocaine used for local infiltration of skin and Bupivacaine 0.25% Dose:: 5 mL Additives (Indicate Dose Given): None Ultrasound: Sterile probe cover and gel used Nerve Stimulator: Supplement to Ultrasound use and No twitch or parasthesia noted < 0.5 mA Paresthesia: None Procedure Tolerated: No Complications Procedure Outcome: Successful Performed By: Adonay Morales 2nd Nerve Block: Laterality: Left Block Type: Other (anterior femoral cutaneous) Ultrasound Image Saved?: Yes Needle / Catheter Used: 100mm SonoPlex II Local Anesthetic Bolus (Indicate Dose Given): Bupivacaine 0.25% Dose:: 5 mL Additives (Indicate Dose Given): None Ultrasound: Sterile probe cover and gel used Nerve Stimulator: Supplement to Ultrasound use and No twitch or parasthesia noted < 0.5 mA Paresthesia: None Procedure Tolerated: No Complications Procedure Outcome: Successful Performed By: Adonay Morales
--- NOTE | 2023-04-22 07:22 | PDOC.DSDIS_ITS ---
Date of service: 04/22/23 Time of Service: 07:22 Discharge Plan Disposition Patient Disposition: Home Condition: Good Discharge Details Reason For Visit: L TKR Attending Provider: Wellington Bhatt Primary Care Provider: Hazel Grajeda Home Meds and New Rx's Prescriptions: New acetaminophen 500 mg tablet 1,000 mg PO TID Qty: 90 3RF aspirin 81 mg tablet,delayed release (DR/EC) 81 mg PO BID Qty: 60 0RF celecoxib 200 mg capsule 200 mg PO BID Qty: 60 0RF tramadol 50 mg tablet 50 mg PO Q4H PRNQty: 20 0RF dexamethasone 4 mg tablet 4 mg PO DAILY Qty: 2 0RF gabapentin 300 mg capsule 300 mg PO QHS Qty: 14 0RF pantoprazole 40 mg tablet,delayed release (DR/EC) 40 mg PO DAILY Qty: 30 0RF Continued omega-3 fatty acids-fish oil 1 EACH capsule 2 ea PO DAILY cholecalciferol (vitamin D3) [Vitamin D3] 2,000 UNIT tablet 2,000 unit PO DAILY cyanocobalamin (vitamin B-12) 2,500 MCG tablet 2,500 mcg PO DAILY amlodipine 10 mg tablet 10 mg PO DAILY red yeast rice 600 mg capsule 1,200 mg PO DAILY Rx Instructions: give with meal/snack esomeprazole magnesium 20 mg capsule,delayed release(DR/EC) 20 mg PO DAILY ascorbic acid (vitamin C) 500 mg capsule 500 mg PO DAILY Discontinued aspirin [Adult Aspirin Regimen] 81 mg tablet,delayed release (DR/EC) 81 mg PO DAILY Discharge Instructions Additional Instructions: Total Knee Discharge Instructions Activity: The most important activity is to walk and to work on gentle motion (both flexion and extension). You should try to take short walks a few times a day. It is important that when resting you work on keeping the knee straight. Avoid putting a pillow behind the knee as this will encourage flexion. Work on range of motion exercises as provided by Physical Therapy. - Start outpatient physical therapy within 2 weeks. - You should wear the NANCY hose on both legs for 2 weeks. You may remove these at night. You may also use any compression sock in place of the NANCY hose. - Utilize [employer] to review exercises, see videos on exercises and obtain basic information pertaining to your surgery and your recovery. Dressing: Remove the Chandu wrap by 2 days after your surgery and put on the NANCY stocking given to you from the hospital. Keep the surgical dressing (underneath the CHANDU wrap) in place for at least one week. After the first week it may be removed and replaced with light gauze and tape or nothing. The wound and dressing may get wet after 3 days but avoid soaking the dressing or otherwise it will need to be changed. Many people prefer covering the dressing with cling wrap (saran wrap) to minimize it from getting soaked. If it gets wet, just pat dry. If it starts to peel off then it will need to be changed. Medications: - You should take Tylenol and anti-inflammatory Celebrex as your primary pain control medications. If the Celebrex is too expensive or not covered, please call the office for another alternative (Advil/Ibuprofen or Naproxen/Aleve) - You have been prescribed a stronger pain medication Tramadol for breakthrough pain, take as needed as prescribed. - You have also been prescribed a stomach acid reduction agent Pantoprozole to help reduce stomach acid and reflux. - You have been prescribed Gabapentin to take at night for restlessness and nerve pain. - You will be taking Aspirin 81mg twice a day for DVT prevention unless instructed otherwise. - You have also been prescribed Decadron to take to control post-operative nausea and pain. You will start this tomorrow. - If you have constipation you should take Colace or Miralax (both [id number]). It takes most people 3-4 days to have a bowel movement. Follow-up: 2 weeks If you have any acute concerns or questions, please do not hesitate to contact the office at [phone]. You may contact Dr. Bhatt with any questions after hours through the hospital at [phone] or on his cell phone at [phone]. Referrals: Wellington Bhatt MD [ [facility] STAFF PHYSICIAN] - Equipment/Supplies: Walker Activity:: Activity as Tolerated Shower/Bathe:: 72 hours Diet:: As Tolerated DS: Diagnosis Discharge Diagnosis (1) Osteoarthritis of left knee: Status: Acute
[2023-04-22] MEDS: ceFAZolin 2 GM/50 ML BAG IVPB (07:42)
--- NOTE | 2023-04-22 09:17 | W.PM.OP ---
Date of service: 04/22/23 Time of Service: 09:17 Operative Note Operative Note DATE OF PROCEDURE: 04/22/23 PRE-OP DIAGNOSIS: Left Knee Arthritis POST-OP DIAGNOSIS: same PROCEDURE: Left Total Knee Replacement SURGEON: Wellington Bhatt CHANNEL CEMENTER INSOLE MACHINE: Kyleigh Guevara ANESTHESIA TYPE: Spinal Refer to Anesthesia Record ESTIMATED BLOOD LOSS: 250 PATHOLOGY: none sent TOURNIQUET TIME: 0 COMPLICATIONS: None Patient was transported to: PACU Patient's condition: stable Implants: 1. Depuy Attune Cementless Cruciate Retaining Femoral Component, Size 7 2. Depuy Attune Cementless Fixed Bearing Tibial Component, Size 7 3. Depuy Attune 7x6 CR/FB Poly 4. Depuy Attune Patellar Component, Size 38 Indications: I have seen Mikael in clinic for symptoms of knee arthritis, confirmed with radiographic findings. He has exhausted nonoperative methods and was having significant limitations in daily function and desired better function and less pain. I discussed the technical details of a knee replacement. I explained the risks of the procedure to include, but not limited to, bleeding, infection, pain, stiffness, fracture, damage to nerves and vessels, damage to muscles and tendons, loosening, need for repeat procedure, blood clot and cardiopulmonary demise. Despite these risks, Mikael elected to proceed. Findings: There were areas of full thickness cartilage loss within the medial compartment primarily as well as the trochlea. Procedure Description: Mikael was greeted in the preoperative holding area where the correct side was identified and marked. The consent was reviewed with the patient and signed. The history and physical was updated. All questions were answered. Preoperative medications were administered: Acetaminophen 1000mg, Celebrex 400mg, and Gabapentin 300mg. An adductor canal block was then administered by the anesthesia team in the PACU. Mikael was taken back to the operating room. A spinal anesthestic was then administered. The patient was placed into the supine position on the operating room table. A nonsterile tourniquet was placed high onto the leg but only used for cementing. Posts were placed for positioning during the procedure. All bony prominences were well padded. Prophylactic antibiotics in the form of Cefazolin were administered. 1g of Tranxemic Acid was given intravenously within 30 minutes of incision. The left leg was then prepped with Chloraprep and draped in a standard fashion with impervious stockinette. A second prep with Chloraprep was performed prior to application of Iodine impregnated skin protection. A timeout to confirm correct identity, side and site, procedure, allergies, anesthesia, and medical concerns was performed. With the knee in some flexion, a midline incision was made overlying the knee. Full thickness skin flaps were raised once the extensor mechanism was encountered. These were raised medially and laterally. Any bleeding was controlled with electrocautery. Once the extensor mechanism was fully exposed, a medial parapatellar arthrotomy was performed in a flexed position. All bleeding from the arthrotomy and the geniculate arteries was coagulated. A medial subperiosteal peel was performed with electrocautery to the midcoronal plane. The fat pad was removed while keeping the patellar tendon protected. The anterior distal femur synovium was removed for later visualization. The ACL and PCL were resected and the anterior horn of the lateral meniscus was transected. The knee was then flexed with the patella everted. There were areas of full thickness cartilage loss about the medial tibia. Using a step drill, and based on preoperative templating, the femoral canal was entered. This was done with a step drill without any difficulty. The intramedullary distal femoral cut guide was inserted, set to a 5 degree valgus cut and 9mm cut thickness. The distal femoral cut guide was then held in position and pinned. With the soft tissues protected, the distal cut was performed. This was passed over a few times to ensure a planar cut. I then turned attention to the tibia. The extramedullary guide was placed onto the leg. The distal aspect was slid medial to adjust for position of center of ankle and stay in line with shaft of the tibia. Approximately 3-5 degrees of posterior slope was kept in the proximal cutting guide. The center of the guide was aligned with the PCL. The stylus was used to assess cut thickness. The medial side, most involved side, was set for a 4mm cut. This was then held in position and pinned into place with 2 additional pins and a cross pin for stability. The medial and lateral collateral ligaments were protected and the cut was performed. With this completed, it was assessed and noted to be of appropriate dimensions. The guide was removed. A spacer block was inserted and the knee was brought into extension. The 6mm spacer block provided full extension, without hyperextension and with stability of both the medial and lateral collateral ligaments was assessed. The pins from the femur and the tibia were then removed. The distal femur was then sized. The anterior stylus was placed onto the lateral ridge of the anterior femur. This indicated a size 7 femur. The external rotation of the guide was adjusted to 3 degrees to match the epicondylar axis, perpendicular to Andrews?s line. The 4-in-1 cutting guide was the placed. The posterior medial femur cut was evaluated and appeared of good thickness. The spacer block was inserted underneath the cutting guide and stability was confirmed in 90 degrees of flexion. An lucretia wing was used to confirm appropriate position of the anterior cut to avoid notching. This cutting guide was ensured to be flush on the cut surface and then pinned into place with headed pins. While protecting the soft tissues, quad tendon, and collateral ligaments, the anterior and posterior cuts were performed with a saw. The central two pins were removed and the posterior and anterior chamfers were cut next. The notch-cutting guide was placed. This was pinned to lateralize the femoral component as much as possible while keeping it flush on the cut surface. This was then pinned into position. A reciprocating saw was used to make the notch cut. A rasp smoothed the cut surfaces. The medial and lateral menisci were removed. A trial femoral component was then inserted, impacted down to the cut surfaces, and the lug holes were drilled. A provisional trial tibial component was placed and the knee was brought through range of motion. There was noted to be excellent extension and flexion. There was no significant instability. The patella was tracking without thumbs. A size 6mm polyethylene component provided the best range of motion and stability with less than 2mm gapping with medial and lateral stress and full extension without significant hyperextension. The tibial cut surface was fully exposed. The tibia was then sized as a 7. The tibia had been previously marked during trialing to correspond to the center of the tibial component to help with rotation. The trial was aligned to this kyleigh, approximately rotated to the medial 1/3rd of the tibial tubercle. The trial was pinned into place. The tibia was prepared with a reamer and a keel punch and lug holes. The knee was then brought into extension and the patella was measured as 27mm. Using the patellar clamp and cut guide, this was resected to a flat surface with at least 13mm of thickness remaining. The size 38 patella fit the best. This was oriented and then clamped into position. The lugs were drilled. The trial components were removed. The final components were opened on the back table. The periosteal and capsular tissues, especially posteriorly, around the knee were then systematically injected with a periarticular cocktail consisting of 246mg of Ropivacaine, 0.5mg of Epinephrine, 0.08mg of Clonidine, and 30mg of Ketorolac, diluted to 100cc. On the back table, with the implants opened, the cement was mixed. One batch of high viscosity cement was prepared with vacuum assistance. After the cement was ready a small amount was placed on the cut surface of the patella and the patellar button was clamped into position and held. While the cement was hardening, the cementless knee components were placed. Starting with the tibial component, the tibia was subluxed anteriorly and the lug holes of the component were lined up. The tibia was then impacted with an impactor and mallet until the tibial component was in contact with the tibia. The final polyethylene component was inserted. Then, the femoral component was inserted. The lug holes were aligned and the component was impacted into position. The knee was irrigated with Surgiphor Betadine solution. This was allowed to sit in the knee for 3 minutes and then it was irrigated out with saline. After the cement had finally cured, approximately 15min, the clamp was removed from the patella and the knee was taken through range of motion. The patella was tracking with a no-thumbs technique. The capsule was then reapproximated with a No. 1 Vicryl at multiple locations. The capsule was finally closed with a No. 2 Stratafix, barbed suture. The second dosing of 1g TXA was started. Deep tissues were then reapproximated with 0 Vicryl and 2-0 Vicryl. The skin was closed with a running 3-0 Monocryl in a subcuticular fashion. This was reinforced with skin glue. A Mepilex silver dressing was applied along with a [id number] RACHNA wrap. A CryoCuff was applied. Mikael was transferred to the hospital bed without difficulty an suffering no apparent complication. Mikael has a good prognosis. Physical therapy will start today and without restrictions, weight-bearing as tolerated. Aspirin 81mg BID will be used for DVT prophylaxis.
--- NOTE | 2023-04-22 09:48 | W.ANESPOSTOP ---
Postoperative Evaluation Date, Time and Location Date Performed: 04/22/23 Time Performed: 09:48 Patient Location: PACU Vital Signs Most Recent Imported Vital Signs: Most Recent Vital Signs Temp Pulse Resp BP Pulse Ox 36.7 C 52 L 12 153/60 H 98 04/22/23 09:40 04/22/23 09:40 04/22/23 09:40 04/22/23 09:40 04/22/23 09:40 Pain Score Most Recent Pain Score: Most Recent Pain Score Pain Level 2 04/22/23 09:40 Assessment Mental Status: Awake (Alert & Oriented to Patient Baseline) Airway and Respiratory Function: Patent airway with normal (patient baseline) respiratory exam Cardiovascular Function: Hemodynamically Stable Hydration Status: Adequately Hydrated Nausea & Vomiting: No Nausea or Vomiting Pain: Pain is tolerable per patient (spinal still in some effect. ) Peripheral Nerve Block: Regional nerve block not resolved at time of post operative discharge
--- NOTE | 2023-04-22 11:10 | IN_ITS ---
PT Notes Visit Reasons: L TKR Physical Therapy Day Surgery Initial Evaluation Date: 04/22/2023 Referring Doctor: ADALBERTO Cannon PT Orders: PT CONSULT: S/P Ortho Surgery Precautions: WBAT on the L LE with AD. Patient Profile/Admitting Diagnosis: Ricardo is a 78-year-old male with degenerative joint disease of the left knee and status post left total knee arthroplasty on postoperative day 0. PMHX: Medical History H/O adenomatous polyp of colon History of colonic polyps Surgical History History of total right knee replacement Social History/Home Situation: Lives with in a private home with 3 steps to enter with rails on both sides. Equipment Owned/DME: [employer] Subjective: Denies headache, chest pain, and lightheadedness throughout. Did report mild achiness on the low front of the left knee that did not limit mobility performance. Objective: General Observation: Supine in bed. RACHNA wraps to left LE. Cryocuff to left knee. TEDS to right leg. present in room throughout session. Mental Status: A and O x 4 Pain: As above ROM: Right Lower Extremity: Hip flexion WFL. Hip abduction WFL. Knee flexion 10 degrees to 80 degrees. Knee extension -10 degrees ankle dorsiflexion WFL. Ankle plantarflexion WFL. Left Lower Extremity: Hip flexion WFL. Hip abduction WFL. Knee flexion 20 degrees to 100 degrees. Knee extension -20 degrees. Ankle dorsiflexion WFL. Ankle plantarflexion WFL. Strength: Right Lower Extremity: Hip flexors 4/5. Hip abductors 4/5. Knee flexors 3-/5. Knee extensors 3-/5. Ankle dorsiflexors 5/5. Ankle plantarflexors 5/5. Left Lower Extremity:Hip flexors 4/5. Hip abductors 4/5. Knee flexors 3-/5. Knee extensors 3-/5. Ankle dorsiflexors 5/5. Ankle plantarflexors 5/5. Sensation: Intact as to pain and light pressure in B LE Bed Mobility/Transfers: Supine to sit supervision Sit to stand stand by assist, cues for using B hands for support Stand to sit stand by assist, cues for using B hands for support Bed to chair stand by assist, cues for using B hands for support Gait: Facilitated safe and correct performance of level surface ambulation covering a distance of 150 feet with step through heel toe gait pattern requiring only standby assist using front-wheeled walker with minimal cues given for AD management, limb advancement, and directional changes. Stairs: Guided patient with safe and correct negotiation of 6 x 4 inch steps and 4 x 6 inch steps while holding onto bilateral rails with step to gait pattern requiring only standby assist with minimal verbal cueing for correct movement sequence. Balance: Static Sitting: Normal Dynamic Sitting: Normal Static Standing: Fair Dynamic Standing: Fair Special Tests: Mobility Limitations Standardized Measure [facility] AM-PAC 6 clicks Basic Mobility Inpatient Short Form: Raw Score: 24 CMS Score: 0% deficit Informed Consent/Education: Patient instructed in purpose of PT consult. Packet containing TKA exercise protocol has been given to patient. Education and training on initial set of exercises that can be done at home have been completed with patient. Trained patient with correct performance of exercises below to maximize motor control, joint flexibility, soft tissue extensibility of the L knee musculature: Access Code: [email or web address] URL: [email or web address] Date: 04/22/2023 Prepared by: Krystal Duncan Exercises - Supine Quad Set - 1 x daily - 7 x weekly - 1 sets - 10 reps - 5 hold - Supine Heel Slide - 1 x daily - 7 x weekly - 1 sets - 10 reps - 5 hold - Supine Ankle Pumps - 1 x daily - 7 x weekly - 1 sets - 10 reps - 5 hold - Small Range Straight Leg Raise - 1 x daily - 7 x weekly - 1 sets - 10 reps - 5 hold - Seated March - 1 x daily - 7 x weekly - 1 sets - 10 reps - 5 hold Assessment: Patient regarding use of a front wheeled walker for mobility ADL performance in order to maximize independence and reduce fall risk. Patient presents with clinical signs and symptoms consistent with current/admitting diagnoses that have resulted to mobility limitations, gait instability, generalized weakness, and impairment of motor control as demonstrated by the following impairment lev el findings: 1. Decreased strength to left knee major muscle groups 2. Impaired standing balance 3. Limitation of joint range of motion in left knee Impairments are contributing to the following functional limitations: 1. Inability to safely ambulate without assistive device 2. Increase completion time for mobility ADL performance 3. Increased fall risk Patient is assessed as a 91902 moderate complexity based on the following: History: 78-year-old male with impairment level findings, functional limitations, and past medical history as indicated above Examination: Demonstrable impairment in strength, balance, and mobility level with underlying impairments and functional limitations as documented above Presentation: Damienling Decision Makin moderate complexity Goals: N/A. PT evaluation and 1-2 treatment sessions only for functional mobility training using recommended AD and for HEP instruction. Plan of Care/Treatment Plan: N/A. PT evaluation and 1-2 treatment session only for functional mobility training using recommended AD and for HEP instruction. DISCHARGE RECOMMENDATIONS: Home when medically cleared by orthopedic surgeon. Recommend outpatient PT services in order to optimize functional mobility outcomes and facilitate return to independent community ambulation without an assistive device. TREATMENT CODE/TIME: 9716 2 x 20 minutes for 1 unit beginning at 11:10 AM. Thank you for the opportunity to participate in the care of this patient. Krystal Duncan PT, DPT, CLT [facility] [place], [place]
== END 2023-04-22 12:12 | disposition home or self-care (01) ==
PROVIDERS: PCP Physician Assistant; Visit Provider Student in an Organized Health Care Education/Training Program
PROC: (CPT 27447; principal; 2023-04-22 07:30)
DX: M17.12 Unilateral primary osteoarthritis, left knee (principal); R73.03 Prediabetes; G31.84 Mild cognitive impairment of uncertain or unknown etiology; K21.9 Gastro-esophageal reflux disease without esophagitis
CPT/HCPCS: 27447; C1776; 76942; 97162; J0690; J1100; J2371; J2405

== ENCOUNTER 2023-05-11 14:57 | Outpatient (CLI) | payer MEDICARE, SELFPAY ==
--- NOTE | 2023-05-11 10:00 | DI.RAD_ITS ---
Exam(s) XR KNEE LT 1V XR STANDING ALIGNMENT EXAM: XR STANDING ALIGNMENT and XR knee LT 1 V CLINICAL HISTORY: 1ST POST OP L TKA. TECHNIQUE: 2D digital imaging was performed. Five images were obtained. COMPARISON: CR XR STANDING ALIGNMENT from 04/16/2023 CR XR KNEE LT 1V from 04/16/2023 FINDINGS: BONES: There are degenerative changes seen in the hips bilaterally. There are stable bilateral total knee replacements. No new lucencies are seen in or about the orthopedic hardware. The ankles are w ell maintained.There is no significant leg length discrepancy. SOFT TISSUE: Atherosclerosis is present. IMPRESSION: Stable bilateral total knee replacements. DATA REPOSITORY: RADIATION DOSE DELIVERED:
== END 2023-05-11 14:58 | disposition home or self-care (01) ==
LOC: DIORS 14:57
PROVIDERS: PCP Physician Assistant; Referring Provider Physician Assistant; Visit Provider Student in an Organized Health Care Education/Training Program
DX: Z96.652 Presence of left artificial knee joint (principal); Z47.1 Aftercare following joint replacement surgery
CPT/HCPCS: 73560; 77073

== ENCOUNTER → 2023-06-18 09:52 | Outpatient (BNVA) | payer MEDICARE, SELFPAY | PROVIDERS: PCP Physician Assistant; Referring Provider Physician Assistant; Visit Provider Student in an Organized Health Care Education/Training Program | DX: Z47.1 Aftercare following joint replacement surgery (principal); Z96.652 Presence of left artificial knee joint ==

== ENCOUNTER → 2023-07-30 09:46 | Outpatient (BNVA) | payer MEDICARE, SELFPAY | PROVIDERS: PCP Physician Assistant; Referring Provider Physician Assistant | DX: Z47.1 Aftercare following joint replacement surgery (principal); Z96.652 Presence of left artificial knee joint ==

== ENCOUNTER 2023-08-11 09:44 | Day surgery (SDC) | payer MEDICARE, SELFPAY ==
[2023-08-11 10:37] VITALS: BP 157/64; PULSE 51; RESP 16; TEMP 36.6; O2SAT 97
[2023-08-11] MEDS: Celecoxib 200 MG CAP PO (10:42)
[2023-08-11] MEDS: Acetaminophen 500 MG TAB 1000 MG PO (10:42)
[2023-08-11] MEDS: Lactated Ringers 1,000 ML 80 ML IV (10:42)
[2023-08-11 11:00] VITALS: BMI 23.4
--- NOTE | 2023-08-11 11:00 | W.ANESPRE ---
General Info Date of Service Date Performed: 08/11/23 Height: 5 ft 8 in Weight: 69.853 kg Body Mass Index (BMI): 23.4 Surgical Procedure: Operation Date: 08/11/23 12:40 Proposed Procedure Side Surgeon p Knee Manipulation of Knee Left Wellington Bhatt MD Meds Allergies and Home Medications Allergies Allergy/AdvReac Type Severity Reaction Status Date / Time influenza virus vaccine tv Allergy Severe Other (See Verified 08/11/23 10:34 split 2012- (5 yr,up) Comment) [From Afluria] oxycodone Allergy Intermediate Other (See Verified 08/11/23 10:34 Comment) sildenafil citrate Allergy Unknown Other (See Verified 08/11/23 10:34 [From Viagra] Comment) donepezil [From Aricept] Allergy Other (See Verified 08/11/23 10:34 Comment) rivastigmine [From Exelon] Allergy Other (See Verified 08/11/23 10:34 Comment) rivastigmine tartrate Allergy Other (See Verified 08/11/23 10:34 [From Exelon] Comment) warfarin sodium Allergy Other (See Verified 08/11/23 10:34 [From Coumadin] Comment) FLU SHOT Allergy Unknown Other (See Uncoded 08/11/23 10:34 Comment) Home Medication Medication Instructions Recorded cholecalciferol (vitamin D3) 50 2,000 unit PO DAILY 04/15/17 mcg (2,000 unit) tablet (Vitamin D3) cyanocobalamin (vitamin B-12) 2,500 mcg PO DAILY 04/15/17 2,500 mcg tablet omega-3 fatty acids-fish oil 300 2 ea PO DAILY 04/15/17 mg-1,000 mg capsule amlodipine 10 mg tablet 10 mg PO DAILY 01/28/22 red yeast rice 600 mg capsule 1,200 mg PO DAILY 01/28/22 ascorbic acid (vitamin C) 500 mg 500 mg PO DAILY 09/02/22 capsule acetaminophen 500 mg tablet 1,000 mg (2 x 500 mg) PO TID #90 04/22/23 tabs Current Visit Medications: Current Medications Generic Name Dose Route Start Last Admin Trade Name Freq PRN Reason Stop Dose Admin Acetaminophen 1,000 mg 08/11/23 06:00 08/11/23 10:42 Acetaminophen 500 Mg Tab PO 02/27/24 23:59 1,000 mg PREOP RUY Administration Celecoxib 200 mg 08/11/23 06:00 08/11/23 10:42 Celecoxib 200 Mg Cap PO 08/11/23 23:59 200 mg PREOP RUY Administration Ringer's Solution 1,000 mls @ 80 mls/hr 08/11/23 06:00 08/11/23 10:42 IV 08/11/23 23:59 80 mls/hr INFUSION RUY Administration Tranexamic Acid 1,000 mg/ 60 mls @ 360 mls/hr 08/11/23 06:00 Sodium Chloride IVPB 08/11/23 23:59 PREOP RUY IV Miscellaneous Supplies 1 each 08/11/23 06:00 Iv Access IV 08/11/23 23:59 DIRECTED RUY Sodium Chloride 0 ml 08/11/23 06:00 Normal Saline Flush 10 Ml Syr IV 08/11/23 23:59 PRN PRN Sodium Chloride 0 ml 08/11/23 06:00 Normal Saline 10 Ml Vial IJ 08/11/23 23:59 DIRECTED PRN Sterile Water 0 ml 08/11/23 06:00 Water,Injection,Sterile 10 Ml Vial IJ 08/11/23 23:59 DIRECTED PRN PFSH Active Problems Active Problems: Problem Status Onset Code 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 Screen for colon cancer Z12.11 Traumatic tear of left rotator cuff 01/03/23 S46.012A Left shoulder pain M25.512 Nutritional deficiency, unspecified E63.9 Prediabetes R73.03 Hearing loss, bilateral H91.93 Left knee pain M25.562 Right knee pain M25.561 Pulsatile tinnitus H93.A9 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 Degenerative joint disease of right hip M16.11 Osteoarthritis of left knee M17.12 Hypertension I10 Erectile dysfunction N52.9 B12 deficiency E53.8 GERD (gastroesophageal reflux disease) K21.9 Lung nodule R91.1 Renal colic N23 Hyperlipidemia E78.5 Bladder mass N32.89 Genital warts A63.0 Mild cognitive impairment G31.84 Orthostatic hypotension I95.1 Hyperglycemia R73.9 Medical History Medical History H/O adenomatous polyp of colon History of colonic polyps Surgical History Surgical History History of total left knee replacement (04/22/23) History of cholecystectomy History of herniorrhaphy History of appendectomy History of total right knee replacement Tobacco Smoking/Tobacco Use Status: Former Tobacco Use Alcohol Alcohol Intake: former Substance Use Substance use: Never Substance use type: does not use Vital Signs and Lab Results Vital Signs Most Recent Vital Signs in EMR: Most Recent Vital Signs Temp Pulse Resp BP Pulse Ox 36.6 C 51 L 16 157/64 H 97 08/11/23 10:37 08/11/23 10:37 08/11/23 10:37 08/11/23 10:37 08/11/23 10:37 Lab Results Blood Type / Crossmatch: No Data to Display Complete Blood Count: No Data to Display Complete Metabolic Panel: No Data to Display Liver Function Panel: No Data to Display Coagulation Panel: No Data to Display Cardiac Panel: No Data to Display Arterial Blood Gas: No Data to Display Venous Blood Gas: No Data to Display Pancreas Panel: No Data to Display Thyroid Panel: No Data to Display Infectious Disease: No Data to Display Blood Cultures: No Data to Display Toxicology Panel: No Data to Display Anesthesia Assessment and Plan Anesthesia History Personal History: No History of Anesthesia Complications Family History: No Family History of Anesthesia Complications Exercise Tolerance Exercise Tolerance: Metabolic Equivalents>4 Pertinent Negatives Pertinent Negatives: No Symptoms of GERD Cardiac & Pulmonary Exam Cardiac Exam: Normal S1/S2 Heart Sounds Pulmonary Exam: Clear Bilateral Breath Sounds Implantable Cardiac Device Does patient have a Pacemaker or an ICD?: No Airway Exam Known Difficult Airway: No Mallampati Class: 2 Mouth Opening: Normal (> 3cm) Thyromental Distance: Greater than 3 cm Neck Range of Motion: Full ROM Neck Circumference: Normal Teeth Condition: Normal Dentition ASA Classification ASA Score: ASA 2 Emergency Case?: No NPO Status NPO Status: NPO Clears >2 hours, Solids >8 hours Anesthesia Plan Resuscitation Status: Full Code Anesthesia Technique: General Anesthesia Airway Planned: Natural Airway Monitors Used: Standard Monitors
[2023-08-11] MEDS: Bupivacaine 0.25% Pres-Free 30 ML VIAL (11:49)
--- NOTE | 2023-08-11 12:01 | PDOC.DSDIS_ITS ---
Date of service: 08/11/23 Time of Service: 12:01 Discharge Plan Disposition Patient Disposition: Home Discharge Details Reason For Visit: Manipulation TKR Attending Provider: Wellington Bhatt Primary Care Provider: Hazel Grajeda Home Meds and New Rx's Prescriptions: New acetaminophen 500 mg tablet 1,000 mg PO TID Qty: 90 0RF tramadol 50 mg tablet 50 mg PO Q6H PRNQty: 8 0RF ibuprofen 600 mg tablet 600 mg PO TID PRN (Reason: pain) Qty: 90 0RF Continued omega-3 fatty acids-fish oil 1 EACH capsule 2 ea PO DAILY cholecalciferol (vitamin D3) [Vitamin D3] 2,000 UNIT tablet 2,000 unit PO DAILY cyanocobalamin (vitamin B-12) 2,500 MCG tablet 2,500 mcg PO DAILY amlodipine 10 mg tablet 10 mg PO DAILY red yeast rice 600 mg capsule 1,200 mg PO DAILY Rx Instructions: give with meal/snack ascorbic acid (vitamin C) 500 mg capsule 500 mg PO DAILY Discontinued acetaminophen 500 mg tablet 1,000 mg PO TID Qty: 90 3RF Discharge Instructions Additional Instructions: Knee Manipulation Discharge Instructions Activity: You should begin moving as soon as possible. You may work on flexion but also equally maintain extension. You may bear weight as tolerated, using crutches only for support/comfort. You should apply ice to help with swelling and elevate when possible (especially in the first few days). Dressings: The knee dressing may come down after 48 hours. You may shower and get the wound wet at that time. You should keep the wounds covered with a melchor id until follow-up. Medications: - Rarely does this require any stronger pain medications. - Recommend to take up to 1000mg of Acetaminophen (Tylenol) and 600mg of Ibuprofen (Advil) every 8 hours as needed. These larger strength tablets were called in but you also may use [id number]. Follow-up: 7-10 days Stand Alone Forms: Anesthesia Discharge InstSam, Blayne Mensah (DSU) Equipment/Supplies: Partial Weight Bearing Crutches Activity:: Activity as Tolerated Shower/Bathe:: 48 hours Diet:: As Tolerated Discharge Orders Discharge Orders: Discharge Order (Routine); Ordered 08/11/23 Ordered By: Kingston Guevara DS: Diagnosis Discharge Diagnosis (1) Arthrofibrosis of total knee arthroplasty: Status: Acute
[2023-08-11 12:03] VITALS: BP 134/66; PULSE 56; RESP 16; TEMP 36.4; O2SAT 96
--- NOTE | 2023-08-11 12:07 | W.ANESPRE ---
General Info Date of Service Date Performed: 08/11/23 Height: 5 ft 8 in Weight: 69.853 kg Body Mass Index (BMI): 23.4 Surgical Procedure: Operation Date: 08/11/23 12:40 Proposed Procedure Side Surgeon p Knee Manipulation of Knee Left Wellington Bhatt MD Meds Allergies and Home Medications Allergies Allergy/AdvReac Type Severity Reaction Status Date / Time influenza virus vaccine tv Allergy Severe Other (See Verified 08/11/23 10:34 split 2012- (5 yr,up) Comment) [From Afluria] oxycodone Allergy Intermediate Other (See Verified 08/11/23 10:34 Comment) sildenafil citrate Allergy Unknown Other (See Verified 08/11/23 10:34 [From Viagra] Comment) donepezil [From Aricept] Allergy Other (See Verified 08/11/23 10:34 Comment) rivastigmine [From Exelon] Allergy Other (See Verified 08/11/23 10:34 Comment) rivastigmine tartrate Allergy Other (See Verified 08/11/23 10:34 [From Exelon] Comment) warfarin sodium Allergy Other (See Verified 08/11/23 10:34 [From Coumadin] Comment) FLU SHOT Allergy Unknown Other (See Uncoded 08/11/23 10:34 Comment) Home Medication Medication Instructions Recorded cholecalciferol (vitamin D3) 50 2,000 unit PO DAILY 04/15/17 mcg (2,000 unit) tablet (Vitamin D3) cyanocobalamin (vitamin B-12) 2,500 mcg PO DAILY 04/15/17 2,500 mcg tablet omega-3 fatty acids-fish oil 300 2 ea PO DAILY 04/15/17 mg-1,000 mg capsule amlodipine 10 mg tablet 10 mg PO DAILY 01/28/22 red yeast rice 600 mg capsule 1,200 mg PO DAILY 01/28/22 ascorbic acid (vitamin C) 500 mg 500 mg PO DAILY 09/02/22 capsule acetaminophen 500 mg tablet 1,000 mg (2 x 500 mg) PO TID #90 08/11/23 tabs ibuprofen 600 mg tablet 600 mg PO TID PRN pain #90 tabs 08/11/23 tramadol 50 mg tablet 50 mg PO Q6H PRN #8 tabs 08/11/23 Current Visit Medications: Current Medications Generic Name Dose Route Start Last Admin Trade Name Freq PRN Reason Stop Dose Admin Acetaminophen 1,000 mg 08/11/23 06:00 08/11/23 10:42 Acetaminophen 500 Mg Tab PO 08/11/23 23:59 1,000 mg PREOP RUY Administration Acetaminophen 650 mg 08/11/23 11:57 Acetaminophen 325 Mg Tab PO 09/10/23 11:56 Q4H PRN PRN Celecoxib 200 mg 08/11/23 06:00 08/11/23 10:42 Celecoxib 200 Mg Cap PO 08/11/23 23:59 200 mg PREOP RUY Administration Ringer's Solution 1,000 mls @ 80 mls/hr 08/11/23 06:00 08/11/23 10:42 IV 08/11/23 23:59 80 mls/hr INFUSION RUY Administration Tranexamic Acid 1,000 mg/ 60 mls @ 360 mls/hr 08/11/23 06:00 Sodium Chloride IVPB 08/11/23 23:59 PREOP RUY IV Miscellaneous Supplies 1 each 08/11/23 06:00 Iv Access IV 08/11/23 23:59 DIRECTED RUY Sodium Chloride 0 ml 08/11/23 06:00 Normal Saline Flush 10 Ml Syr IV 08/11/23 23:59 PRN PRN Sodium Chloride 0 ml 08/11/23 06:00 Normal Saline 10 Ml Vial IJ 08/11/23 23:59 DIRECTED PRN Sterile Water 0 ml 08/11/23 06:00 Water,Injection,Sterile 10 Ml Vial IJ 08/11/23 23:59 DIRECTED PRN Tramadol HCl 50 mg 08/11/23 11:59 Tramadol 50 Mg Tab PO 09/10/23 11:58 Q4H PRN PRN PFSH Active Problems Active Problems: Problem Status Onset Code 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 Screen for colon cancer Z12.11 Traumatic tear of left rotator cuff 01/03/23 S46.012A Left shoulder pain M25.512 Nutritional deficiency, unspecified E63.9 Prediabetes R73.03 Hearing loss, bilateral H91.93 Left knee pain M25.562 Right knee pain M25.561 Pulsatile tinnitus H93.A9 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 Degenerative joint disease of right hip M16.11 Osteoarthritis of left knee M17.12 Hypertension I10 Erectile dysfunction N52.9 B12 deficiency E53.8 GERD (gastroesophageal reflux disease) K21.9 Lung nodule R91.1 Renal colic N23 Hyperlipidemia E78.5 Bladder mass N32.89 Genital warts A63.0 Mild cognitive impairment G31.84 Orthostatic hypotension I95.1 Hyperglycemia R73.9 Medical History Medical History H/O adenomatous polyp of colon History of colonic polyps Surgical History Surgical History History of total left knee replacement (04/22/23) History of cholecystectomy History of herniorrhaphy History of appendectomy History of total right knee replacement Tobacco Smoking/Tobacco Use Status: Former Tobacco Use Alcohol Alcohol Intake: former Substance Use Substance use: Never Substance use type: does not use Vital Signs and Lab Results Vital Signs Most Recent Vital Signs in EMR: Most Recent Vital Signs Temp Pulse Resp BP Pulse Ox 36.6 C 51 L 16 157/64 H 97 08/11/23 10:37 08/11/23 10:37 08/11/23 10:37 08/11/23 10:37 08/11/23 10:37 Lab Results Blood Type / Crossmatch: No Data to Display Complete Blood Count: No Data to Display Complete Metabolic Panel: No Data to Display Liver Function Panel: No Data to Display Coagulation Panel: No Data to Display Cardiac Panel: No Data to Display Arterial Blood Gas: No Data to Display Venous Blood Gas: No Data to Display Pancreas Panel: No Data to Display Thyroid Panel: No Data to Display Infectious Disease: No Data to Display Blood Cultures: No Data to Display Toxicology Panel: No Data to Display Anesthesia Assessment and Plan Anesthesia History Personal History: No History of Anesthesia Complications Family History: No Family History of Anesthesia Complications Exercise Tolerance Exercise Tolerance: Metabolic Equivalents>4 Pertinent Negatives Pertinent Negatives: No Symptoms of GERD Cardiac & Pulmonary Exam Cardiac Exam: Normal S1/S2 Heart Sounds Pulmonary Exam: Clear Bilateral Breath Sounds Implantable Cardiac Device Does patient have a Pacemaker or an ICD?: No Airway Exam Known Difficult Airway: No Mallampati Class: 2 Mouth Opening: Normal (> 3cm) Thyromental Distance: Greater than 3 cm Neck Range of Motion: Full ROM Neck Circumference: Normal Teeth Condition: Normal Dentition ASA Classification ASA Score: ASA 2 Emergency Case?: No NPO Status NPO Status: NPO Clears >2 hours, Solids >8 hours Anesthesia Plan Resuscitation Status: Full Code Anesthesia Technique: General Anesthesia Airway Planned: Natural Airway
--- NOTE | 2023-08-11 12:08 | W.ANESPOSTOP ---
Postoperative Evaluation Date, Time and Location Date Performed: 08/11/23 Time Performed: 12:08 Patient Location: Day Surgery Unit Vital Signs Most Recent Imported Vital Signs: Most Recent Vital Signs Temp Pulse Resp BP Pulse Ox 36.6 C 51 L 16 157/64 H 97 08/11/23 10:37 08/11/23 10:37 08/11/23 10:37 08/11/23 10:37 08/11/23 10:37 Pain Score Most Recent Pain Score: Most Recent Pain Score Pain Level 0 08/11/23 10:37 Assessment Mental Status: Awake (Alert & Oriented to Patient Baseline) Airway and Respiratory Function: Patent airway with normal (patient baseline) respiratory exam Cardiovascular Function: Hemodynamically Stable Hydration Status: Adequately Hydrated Nausea & Vomiting: No Nausea or Vomiting Pain: Pain is tolerable per patient Peripheral Nerve Block: Patient did not receive a nerve block
[2023-08-11 12:26] VITALS: BP 156/84; PULSE 54; RESP 16; TEMP 36.5; O2SAT 98
--- NOTE | 2023-08-11 13:03 | ROE_ITS ---
Date of service: 08/11/23 Time of Service: 12:00 Operative Note Operative Note DATE OF PROCEDURE: 08/11/23 PRE-OP DIAGNOSIS: Left Knee Arthrofibrosis s/p Replacement POST-OP DIAGNOSIS: same PROCEDURE: Left Knee Manipulation Under Anesthesia SURGEON: Wellington Bhatt ANESTHESIA TYPE: General:No Airway Refer to Anesthesia Record ESTIMATED BLOOD LOSS: 0 PATHOLOGY: none sent TOURNIQUET TIME: 0 COMPLICATIONS: None Patient was transported to: PACU Patient's condition: stable Indications: Mikael is a 78 year old male who is s/p knee replacement. Despite diligent work with physical therapy there has been continued stiffness. To assist with mobility, I offered a manipulation under anesthesia. I discussed the risks of the procedure to include bleeding, pain, recurrent stiffness, fracture. Despite these risks, he elects to proceed. Findings: Preoperative flexion = 105 Postoperative flexion = 130 Preoperative extension = 15 Postoperative extension = 0 Procedure Description: The patient was greeted in the preoperative holding area. Identity was confirmed and the correct side was identified and marked. The consent was reviewed the patient and signed. History and physical was updated. Mikael was taken back to the operating room. The left side was identified as the correct side. A timeout was performed for safe surgery. A general anesthetic was administered. The knee was then prepped with ChloraPrep and an intra-articular injection of 10 cc of 0.5% bupivacaine was administered. Once a muscle relaxant was fully on board manipulation was performed. Pre- manipulation range of motion was noted. A gentle manipulation was performed first into flexion using a very small lever arm and adding gentle and progressive pressure to the tibia. There is audible and palpable crepitus with improvement in range of motion. This was cycled and repeated multiple times. The leg was then brought into extension and gentle anterior posterior pressure was applied with a supported hand behind the proximal tibia and knee. This was brought back into flexion was once again manipulated with gentle and progressive pressure. Final range of motion numbers were recorded. A Band-Aid was applied to the injection site. He was awakened from anesthesia and taken to the PACU in stable condition.
== END 2023-08-11 12:57 | disposition home or self-care (01) ==
PROVIDERS: PCP Physician Assistant; Visit Provider Student in an Organized Health Care Education/Training Program
PROC: (CPT 27570; principal; 2023-08-11 12:30)
DX: T84.82XA Fibrosis due to internal orthopedic prosthetic devices, implants and grafts, initial encounter (principal); Z96.652 Presence of left artificial knee joint
CPT/HCPCS: 27570; J0330; J0665; J2001; J2704

== ENCOUNTER → 2023-08-24 13:16 | Outpatient (BNVA) | payer MEDICARE, SELFPAY | PROVIDERS: PCP Physician Assistant; Referring Provider Physician Assistant; Visit Provider Student in an Organized Health Care Education/Training Program | DX: Z47.1 Aftercare following joint replacement surgery (principal); T84.82XD Fibrosis due to internal orthopedic prosthetic devices, implants and grafts, subsequent encounter; Z96.652 Presence of left artificial knee joint ==

== ENCOUNTER → 2023-10-05 14:07 | Outpatient (BNVA) | payer MEDICARE, SELFPAY | PROVIDERS: PCP Physician Assistant; Referring Provider Physician Assistant; Visit Provider Student in an Organized Health Care Education/Training Program | DX: Z47.1 Aftercare following joint replacement surgery (principal); T84.82XA Fibrosis due to internal orthopedic prosthetic devices, implants and grafts, initial encounter; Z96.652 Presence of left artificial knee joint ==

== ENCOUNTER 2023-10-14 11:45 | Day surgery (SDC) | payer MEDICARE, SELFPAY ==
[2023-10-14] VITALS (8 sets, daily range): BP systolic 119–157; BP diastolic 64–88; PULSE 53–69; RESP 10–17; TEMP 36.1–36.6; O2SAT 95–98; BMI 23.3
[2023-10-14] MEDS: Lactated Ringers 1,000 ML 80 ML IV (12:35)
[2023-10-14] MEDS: Acetaminophen 500 MG TAB 1000 MG PO (12:35)
[2023-10-14] MEDS: Celecoxib 200 MG CAP 400 MG PO (12:35)
--- NOTE | 2023-10-14 12:38 | W.PM.DSUDISC ---
Date of service: 10/14/23 Time of Service: 12:38 Discharge Plan Disposition Patient Disposition: Home Discharge Details Reason For Visit: Left Knee Arthrofibrosis Attending Provider: Wellington Bhatt Primary Care Provider: Hazel Grajeda Home Meds and New Rx's Prescriptions: Continued omega-3 fatty acids-fish oil 1 EACH capsule 2 ea PO DAILY cholecalciferol (vitamin D3) [Vitamin D3] 2,000 UNIT tablet 2,000 unit PO DAILY cyanocobalamin (vitamin B-12) 2,500 MCG tablet 2,500 mcg PO DAILY amlodipine 10 mg tablet 10 mg PO DAILY ascorbic acid (vitamin C) 500 mg capsule 500 mg PO DAILY aspirin 81 mg capsule 81 mg PO DAILY tramadol 50 mg tablet 50 mg PO Q6H PRNQty: 10 0RF acetaminophen 500 mg tablet 1,000 mg PO TID Qty: 60 0RF ibuprofen 600 mg tablet 600 mg PO TID PRN (Reason: pain) Qty: 90 0RF Discharge Instructions Additional Instructions: Knee Manipulation Discharge Instructions Activity: You should begin moving as soon as possible. You may work on flexion but also equally maintain extension. You may bear weight as tolerated, using crutches only for support/comfort. You should apply ice to help with swelling and elevate when possible (especially in the first few days). Dressings: The knee dressing may come down after 48 hours. You may shower and get the wound wet at that time. You should keep the wounds covered with a bandaid until follow-up. Medications: - Rarely does this require any stronger pain medications, Tramadol. - Recommend to take up to 1000mg of Acetaminophen (Tylenol) and 600mg of Ibuprofen (Advil) every 8 hours as needed. These larger strength tablets were called in but you also may use [id number]. Follow-up: 7-10 days Referrals: Wellington Bhatt MD [ [facility] STAFF PHYSICIAN] - Activity:: Activity as Tolerated Remove Dressings/Wound Care:: 48 hours Shower/Bathe:: 48 hours Discharge Orders Discharge Orders: Discharge Order (Routine); Ordered 10/14/23 Ordered By: Wellington Bhatt
--- NOTE | 2023-10-14 12:51 | W.ANESPRE ---
General Info Date of Service Date Performed: 10/14/23 Height: 5 ft 8 in Weight: 69.5 kg Body Mass Index (BMI): 23.3 Surgical Procedure: Operation Date: 10/14/23 15:25 Proposed Procedure Side Surgeon p Knee Arthroscopy Synovectomy Left Wellington Bhatt MD Meds Allergies and Home Medications Allergies Allergy/AdvReac Type Severity Reaction Status Date / Time influenza virus vaccine tv Allergy Severe Other (See Verified 10/14/23 12:01 split 2012-14 (5 yr,up) Comment) [From Afluria] oxycodone Allergy Intermediate Other (See Verified 10/14/23 12:01 Comment) sildenafil citrate Allergy Unknown Other (See Verified 10/14/23 12:01 [From Viagra] Comment) donepezil [From Aricept] Allergy Other (See Verified 10/14/23 12:01 Comment) rivastigmine [From Exelon] Allergy Other (See Verified 10/14/23 12:01 Comment) rivastigmine tartrate Allergy Other (See Verified 10/14/23 12:01 [From Exelon] Comment) warfarin sodium Allergy Other (See Verified 10/14/23 12:01 [From Coumadin] Comment) FLU SHOT Allergy Unknown Other (See Uncoded 10/14/23 12:01 Comment) Home Medication Medication Instructions Recorded cholecalciferol (vitamin D3) 50 2,000 unit PO DAILY 04/15/17 mcg (2,000 unit) tablet (Vitamin D3) cyanocobalamin (vitamin B-12) 2,500 mcg PO DAILY 04/15/17 2,500 mcg tablet omega-3 fatty acids-fish oil 300 2 ea PO DAILY 04/15/17 mg-1,000 mg capsule amlodipine 10 mg tablet 10 mg PO DAILY 01/28/22 ascorbic acid (vitamin C) 500 mg 500 mg PO DAILY 09/02/22 capsule aspirin 81 mg capsule 81 mg PO DAILY 10/12/23 acetaminophen 500 mg tablet 1,000 mg (2 x 500 mg) PO TID #60 10/14/23 tabs ibuprofen 600 mg tablet 600 mg PO TID PRN pain #90 tabs 10/14/23 tramadol 50 mg tablet 50 mg PO Q6H PRN #10 tabs 10/14/23 Current Visit Medications: Current Medications Generic Name Dose Route Start Last Admin Trade Name Freq PRN Reason Stop Dose Admin Acetaminophen 1,000 mg 10/14/23 06:00 10/14/23 12:35 Acetaminophen 500 Mg Tab PO 10/14/23 23:59 1,000 mg PREOP RUY Administration Acetaminophen 650 mg 10/14/23 16:00 Acetaminophen 325 Mg Tab PO 11/13/23 15:59 Q4H PRN PRN Celecoxib 400 mg 10/14/23 06:00 10/14/23 12:35 Celecoxib 200 Mg Cap PO 10/14/23 23:59 400 mg PREOP RUY Administration Ringer's Solution 1,000 mls @ 80 mls/hr 10/14/23 06:00 10/14/23 12:35 IV 10/14/23 23:59 80 mls/hr INFUSION RUY Administration Cefazolin Sodium/Dextrose 2 gm in 50 mls @ 100 mls/hr 10/14/23 06:00 Ancef Duplex IVPB 10/14/23 23:59 PREOP RUY Tranexamic Acid/Sodium Chloride 1,000 mg in 100 mls @ 600 mls/hr 10/14/23 06:00 IVPB 10/14/23 23:59 PREOP RUY Ondansetron HCl 4 mg/ Sodium 52 mls @ 200 mls/hr 10/14/23 12:37 Chloride IVPB 11/13/23 12:36 Q6H PRN PRN IV Miscellaneous Supplies 1 each 10/14/23 06:00 Iv Access IV 10/14/23 23:59 DIRECTED RUY Sodium Chloride 0 ml 10/14/23 06:00 Normal Saline Flush 10 Ml Syr IV 10/14/23 23:59 PRN PRN Sodium Chloride 0 ml 10/14/23 06:00 Normal Saline 10 Ml Vial IJ 10/14/23 23:59 DIRECTED PRN Sterile Water 0 ml 10/14/23 06:00 Water,Injection,Sterile 10 Ml Vial IJ 10/14/23 23:59 DIRECTED PRN PFSH Active Problems Active Problems: Problem Status Onset Code 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 Screen for colon cancer Z12.11 Traumatic tear of left rotator cuff 01/03/23 S46.012A Left shoulder pain M25.512 Nutritional deficiency, unspecified E63.9 Prediabetes R73.03 Hearing loss, bilateral H91.93 Left knee pain M25.562 Right knee pain M25.561 Pulsatile tinnitus H93.A9 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 Degenerative joint disease of right hip M16.11 Osteoarthritis of left knee M17.12 Hypertension I10 Erectile dysfunction N52.9 B12 deficiency E53.8 GERD (gastroesophageal reflux disease) K21.9 Lung nodule R91.1 Renal colic N23 Hyperlipidemia E78.5 Bladder mass N32.89 Genital warts A63.0 Mild cognitive impairment G31.84 Orthostatic hypotension I95.1 Hyperglycemia R73.9 Medical History Medical History H/O adenomatous polyp of colon History of colonic polyps Surgical History Surgical History History of total left knee replacement (04/22/23) History of cholecystectomy History of herniorrhaphy History of appendectomy History of total right knee replacement Tobacco Smoking/Tobacco Use Status: Former Tobacco Use Alcohol Alcohol Intake: former Substance Use Substance use: Never Substance use type: does not use Vital Signs and Lab Results Vital Signs Most Recent Vital Signs in EMR: Most Recent Vital Signs Temp Pulse Resp BP Pulse Ox 36.6 C 55 L 16 142/75 H 97 10/14/23 12:30 10/14/23 12:30 10/14/23 12:30 10/14/23 12:30 10/14/23 12:30 Lab Results Blood Type / Crossmatch: No Data to Display Complete Blood Count: No Data to Display Complete Metabolic Panel: No Data to Display Liver Function Panel: No Data to Display Coagulation Panel: No Data to Display Cardiac Panel: No Data to Display Arterial Blood Gas: No Data to Display Venous Blood Gas: No Data to Display Pancreas Panel: No Data to Display Thyroid Panel: No Data to Display Infectious Disease: No Data to Display Blood Cultures: No Data to Display Toxicology Panel: No Data to Display Anesthesia Assessment and Plan Anesthesia History Personal History: No History of Anesthesia Complications Family History: No Family History of Anesthesia Complications Exercise Tolerance Exercise Tolerance: Metabolic Equivalents>4 Pertinent Negatives Pertinent Negatives: No Symptoms of GERD (Patient reports he has never had GERD symptoms), No Major Cardiovascular Symptoms or Complaints and No Major Pulmonary Symptoms or Complaints Cardiac & Pulmonary Exam Cardiac Exam: Normal S1/S2 Heart Sounds Pulmonary Exam: Clear Bilateral Breath Sounds Implantable Cardiac Device Does patient have a Pacemaker or an ICD?: No Airway Exam Known Difficult Airway: No Mallampati Class: 2 Mouth Opening: Normal (> 3cm) Thyromental Distance: Greater than 3 cm Neck Range of Motion: Full ROM Neck Circumference: Normal Teeth Condition: Removable Dentures/Plates Upper, Removable Dentures/Plates Lower and Edentulous ASA Classification ASA Score: ASA 2 Emergency Case?: No NPO Status NPO Status: NPO Clears >2 hours, Solids >8 hours Anesthesia Plan Resuscitation Status: Full Code Anesthesia Technique: General Anesthesia Airway Planned: LMA Monitors Used: Standard Monitors
[2023-10-14] MEDS: ceFAZolin 2 GM/50 ML BAG IVPB (15:05)
[2023-10-14] MEDS: TRANEXAMIC ACID/SOD. CHL. 1,000 MG/100 ML BAG 600 MG IVPB (15:18)
[2023-10-14] MEDS: EPINEPHrine 10 MG/10 ML ML (15:36)
[2023-10-14] MEDS: Bupivacaine 0.5% Pres-Free 30 ML VIAL (15:50)
--- NOTE | 2023-10-14 16:03 | ROE_ITS ---
Date of service: 10/14/23 Time of Service: 15:00 Operative Note Operative Note DATE OF PROCEDURE: 10/14/23 PRE-OP DIAGNOSIS: Arthrofibrosis of Knee Replacement - Left POST-OP DIAGNOSIS: same PROCEDURE: Arthroscopic Synovectomy of 3 Compartments with Manipulation - Left Knee SURGEON: Wellington Bhatt ANESTHESIA TYPE: General LMA/ETT Refer to Anesthesia Record ESTIMATED BLOOD LOSS: 0 PATHOLOGY: none sent COMPLICATIONS: None Patient was transported to: PACU Patient's condition: stable Indications: I have seen Mikael in clinic for symptoms of arthrofibrosis of the knee following knee replacement surgery. Nonoperative measures were exhausted but disability due to lack of motion persisted. I discussed knee arthroscopy with synovectomy with maniuplation with the patient. I reviewed the risks of the procedure to include, but not limited to, bleeding, infection, pain, continued stiffness, recurrence, blood clot. Despite these risks, the patient elected to proceed. Findings: Preoperative Range of Motion: Flexion: 95 Extension:0 Postoperative Range of Motion: Flexion:125 Extension:0 Procedure Description: Mikael was greeted in the preoperative holding area where the correct side was identified and marked. The consent was reviewed with the patient and signed. The history and physical was updated. All questions were answered. He was taken back to the operating room. The patient was placed into the supine position on the operating room table. All bony prominences were well padded. Prophylactic antibiotics in the form of Cefazolin were administered. Preoperative range of motion was assessed as 0 - 95. The left leg was then prepped with Chloraprep and draped in a standard fashion with stockinette and extremity drape. A timeout to confirm correct identity, side and site, procedure, allergies, anesthesia, and medical concerns was performed. The leg was placed into a pneumatic leg peck, SPIDER2. A standard lateral portal was made at the lateral border of the patella tendon in line with the inferior pole of the patella, soft spot. The skin and deep tissue was incised sharply and the blunt trochar was inserted atraumatically. At this point had visualization of the femoral component. A superolateral portal was then established with spinal needle localization just superior and lateral to the patella. A knife was taken down through the skin and soft tissue to enter the k nee joint. Starting in the superior compartment above the femoral component and anterior to the femur I released all scarring between the anterior femoral synovium and the overlying extensor mechanism. This was taken through all of any noticeable scar tissue until the superior patellar pouch was fully released and mobile. This resection was carried out mostly with electrocautery as well as shaver. Once this was released fully from lateral to medial superiorly I then continue working down the lateral gutter. All scar tissue in the lateral gutter was released so there is normal space and movement between the capsular tissues and the edge of the femoral component and femur. This was taken down through the lateral gutter such that I was able to identify the polyethylene to its posterior corner. Once again, all scar tissue in this area was resected so the polyethylene was easily visible and there is no interposed tissue in the back or the polyethylene was identified. I then continued to work anteriorly. There is no interposed tissue after full synovectomy was performed. Adhesions between the capsule and the femur were released. This was continued up the medial gutter until it met up with the releases performed previously in the superior compartment. Any remnant scar tissue from around the patella was then removed with a shaver and electrocautery. The arthroscope was brought back into the suprapatellar pouch and the leg was in full extension. The knee was thoroughly irrigated with the arthroscopic fluid on high flow and pressure. Any excess synovium was debrided with a shaver. Inflow was stopped and excess fluid was removed. The leg was removed from the spider leg peck and manipulation was performed. I first push the knee into flexion and was able to obtain 125 degrees. The wounds were closed with 4-0 Nylon. 0.25% bupivacaine was injected around the portal sites and into the knee. The wounds were dressed with Xeroform, 4x4 gauze, ABD pad, Kerlix and an RACHNA wrap. A cryo-cuff was applied. The patient tolerated the procedure well and was returned to the Same Day Surgery area in a stable condition suffering no known complication..
--- NOTE | 2023-10-14 16:17 | W.ANESPOSTOP ---
Postoperative Evaluation Date, Time and Location Date Performed: 10/14/23 Time Performed: 16:17 Patient Location: PACU Vital Signs Most Recent Imported Vital Signs: Most Recent Vital Signs Temp Pulse Resp BP Pulse Ox 36.5 C 60 16 119/67 96 10/14/23 15:57 10/14/23 16:02 10/14/23 16:02 10/14/23 16:02 10/14/23 16:02 Pain Score Most Recent Pain Score: Most Recent Pain Score Pain Level 0 10/14/23 16:02 Assessment Mental Status: Awake (Alert & Oriented to Patient Baseline) Airway and Respiratory Function: Patent airway with normal (patient baseline) respiratory exam Cardiovascular Function: Hemodynamically Stable Hydration Status: Adequately Hydrated Nausea & Vomiting: No Nausea or Vomiting Pain: Pt. Denies Any Pain Peripheral Nerve Block: Patient did not receive a nerve block
== END 2023-10-14 17:28 | disposition home or self-care (01) ==
PROVIDERS: PCP Physician Assistant; Visit Provider Student in an Organized Health Care Education/Training Program
PROC: (CPT 29870; principal; 2023-10-14 15:15)
DX: T84.82XA Fibrosis due to internal orthopedic prosthetic devices, implants and grafts, initial encounter (principal); Z96.652 Presence of left artificial knee joint; I10 Essential (primary) hypertension; R73.03 Prediabetes; E78.5 Hyperlipidemia, unspecified
CPT/HCPCS: 29876; J0665; J0690; J1100; J2001; J2405; J2704; J3010

== ENCOUNTER → 2023-10-26 12:39 | Outpatient (BNVA) | payer MEDICARE, SELFPAY | PROVIDERS: PCP Physician Assistant; Referring Provider Physician Assistant; Visit Provider Student in an Organized Health Care Education/Training Program | DX: Z47.1 Aftercare following joint replacement surgery (principal); T84.82XA Fibrosis due to internal orthopedic prosthetic devices, implants and grafts, initial encounter; Z96.652 Presence of left artificial knee joint ==

== ENCOUNTER → 2023-11-23 14:17 | Outpatient (BNVA) | payer MEDICARE, SELFPAY | PROVIDERS: PCP Physician Assistant; Visit Provider Student in an Organized Health Care Education/Training Program | DX: Z47.89 Encounter for other orthopedic aftercare (principal); T84.82XA Fibrosis due to internal orthopedic prosthetic devices, implants and grafts, initial encounter ==

== ENCOUNTER 2023-12-29 18:39 | Outpatient (REF) | payer MEDICARE, SELFPAY ==
[2023-12-29 19:22] LABS: ALT 23 U/L (16-63); AST 16 U/L (15-37); Albumin 3.7 g/dL (3.4-5.0); Alkaline Phosphatase 50 U/L (46-116); Anion Gap 8.7 mmol/L (3-11); BUN 13 mg/dL (7-18); Bilirubin, Total 0.62 mg/dL (0.2-1.0); CO2 27.3 mmol/L (21.0-32.0); Calcium 8.9 mg/dL (8.5-10.1); Chloride 108 mmol/L (98-107); Glucose 189 mg/dL (74-106); LDL CHOLESTEROL 101 mg/dL (<100); Potassium 3.9 mmol/L (3.5-5.1); Sodium 144 mmol/L (136-145); Total Protein 6.8 g/dL (6.4-8.2)
[2023-12-30 20:06] LABS: Hepatitis C Ab w Rflx HCV PCR Negative (Negative)
== END 2023-12-29 18:40 | disposition home or self-care (01) ==
LOC: NCHCN 18:39
PROVIDERS: PCP Physician Assistant; Visit Provider Physician Assistant
DX: E78.5 Hyperlipidemia, unspecified (principal); Z11.59 Encounter for screening for other viral diseases
CPT/HCPCS: 80053; 83721; 86803

== ENCOUNTER 2024-04-25 15:47 | Outpatient (CLI) | payer MEDICARE, SELFPAY ==
--- NOTE | 2024-04-25 14:30 | DI.RAD_ITS ---
Exam(s) XR KNEE LT 2V AP,LAT EXAM: XR KNEE LT 2V AP,LAT CLINICAL HISTORY: L TKR. TECHNIQUE: 2D digital imaging was performed. Two images were obtained. AP and lateral views were ob tained. COMPARISON: CR XR KNEE LT 1V from 05/11/2023 CR XR STANDING ALIGNMENT from 05/11/2023 FINDINGS: BONES: There are stable post operative changes of a left total knee arthroplasty present. No fractur e or dislocation. JOINTS: The orthopedic hardware is in good position. No evidence of hardware loosening. SOFT TISSUE: Atherosclerotic calcification is seen in the soft tissues. IMPRESSION: Stable left total knee arthroplasty. DATA REPOSITORY: RADIATION DOSE DELIVERED:
== END 2024-04-25 15:48 | disposition home or self-care (01) ==
LOC: DIORS 15:47
PROVIDERS: PCP Physician Assistant; Visit Provider Student in an Organized Health Care Education/Training Program
DX: Z47.1 Aftercare following joint replacement surgery (principal); Z96.652 Presence of left artificial knee joint
CPT/HCPCS: 99213; 73560

== ENCOUNTER 2024-07-28 09:29 | Outpatient (REF) | payer MEDICARE, SELFPAY ==
[2024-07-28 19:19] LABS: Absolute Basophil Count 0.03 10^3/uL (0.0-0.2); Absolute Eosinophil Count 0.13 10^3/uL (0.0-0.7); Absolute Lymphocyte Count 1.64 10^3/uL (1.2-3.4); Absolute Monocyte Count 0.51 10^3/uL (0.1-0.8); Absolute Neutrophil Count 3.36 10^3/uL (1.2-6.7); Basophils % 0.5 %; Eosinophils % 2.3 %; HCT 43.7 % (40.0-50.0); HGB 14.7 g/dL (13.5-17.5); Lymphocytes % 28.9 %; MCH 30.5 pg (27.0-33.0); MCHC 33.6 % (32.0-36.0); MCV 91 fL (80-95); MPV 10.3 fL (8.0-11.0); Neutrophils % 59.3 %; Platelet Count 235 10^3/uL (130-400); RBC 4.82 10^6/uL (4.36-5.78); RDW 12.1 % (11.8-14.1); RDW-SD 39.8 fL; WBC 5.67 10^3/uL (4.4-10.8)
[2024-07-28 20:04] LABS: Folate > 20.0 ng/mL (8.6-20.0); Vitamin B12 1188 pg/mL (193-986)
== END 2024-07-28 09:30 | disposition home or self-care (01) ==
LOC: NCHCN 09:29
PROVIDERS: PCP Physician Assistant; Visit Provider Physician Assistant
DX: D69.6 Thrombocytopenia, unspecified (principal)
CPT/HCPCS: 82607; 82746; 85025

== ENCOUNTER 2024-07-28 10:50 | Outpatient (CLI) | payer MEDICARE, SELFPAY ==
--- NOTE | 2024-07-28 | DI.RAD_ITS ---
Exam(s) XR LUMBAR SPINE COMPLETE EXAM: XR LUMBAR SPINE COMPLETE CLINICAL HISTORY: LOW BACK PAIN M54.50 FALL 2 WEEKS AGO. TECHNIQUE: 2D digital imaging was performed. COMPARISON: No exams were available for comparison FINDINGS: Five views. No evidence of acute fracture, listhesis, nor pars interarticularis defects. There is slight anterior wedging of T12 vertebral body and also slight loss of superior endplate heig ht at L2. Appearance of L3 and L4 vertebral bodies may reflect presence of intraosseous hemangiomas at these le vels. There is advanced disc space narrowing at L4-5 level. Milder disc space narrowing at L5-S1, L1-2 and L2-3 levels. L3-4 disc space exhibits normal height. IMPRESSION: Slight loss of height of superior endplate of L2 and mild wedging of T12. These are probably not acu te. Multilevel disc space narrowing most prominent at L4-5 level. Other findings as above. DATA REPOSITORY: RADIATION DOSE DELIVERED:
== END 2024-07-28 11:10 ==
LOC: DI 10:51
PROVIDERS: PCP Physician Assistant; Visit Provider Physician Assistant
DX: S22.080A Wedge compression fracture of T11-T12 vertebra, initial encounter for closed fracture (principal); X58.XXXA Exposure to other specified factors, initial encounter
CPT/HCPCS: 72110

== ENCOUNTER 2025-04-24 15:25 | Outpatient (CLI) | payer MEDICARE, SELFPAY ==
--- NOTE | 2025-04-24 13:15 | DI.RAD_ITS ---
Exam(s) XR KNEE LT 2V AP,LAT EXAM: XR KNEE LT 2V AP,LAT CLINICAL HISTORY: ANNUAL F/U L TKA. TECHNIQUE: 2D digital imaging was performed. Three views. COMPARISON: CR XR KNEE LT 2V AP,LAT from 04/25/2024 FINDINGS: BONES: No acute fracture is present. No bony destructive lesion is seen. JOINTS: The knee prosthesis is normally aligned. No joint effusion is seen. SOFT TISSUE: Vascular calcifications. Lower leg edema. IMPRESSION: Stable appearance of total knee prosthesis. DATA REPOSITORY: RADIATION DOSE DELIVERED:
== END 2025-04-24 15:26 | disposition home or self-care (01) ==
LOC: DIORS 15:25
PROVIDERS: PCP Physician Assistant; Visit Provider Student in an Organized Health Care Education/Training Program
DX: Z47.1 Aftercare following joint replacement surgery (principal); Z96.652 Presence of left artificial knee joint
CPT/HCPCS: 99213; 73560